=== PATIENT | male | born 1935 | race Caucasian/White ===

== ENCOUNTER 2020-03-03 11:17 | Emergency (ER) | payer MEDICARE ==
[~2020-03-03] VITALS: Ht 175.3 cm; Wt 61.1 kg
--- NOTE | 2020-03-03 11:49 | PHYS DOC ---
Past History Past Medical History: Dementia, Hypertension, Hypothyroid Past Medical History Parkinson's Past Surgical History: No Surgical History Smoking: Non-smoker Alcohol Use: None Drug Use: None General Adult EDM: Chief Complaint: MECHANICAL FALL HPI: HPI: Patient is an 84 year old male who presents for evaluation of left hip pain after fall. Patient lives at home with his spouse. He is very weak and has tr ouble walking at baseline. He had a mechanical fall out of his bed and injured his left hip. He was unable to stand or walk after the injury. EMS was contacted brought the patient in for evaluation. Patient is normally seen at [facility]. No other obvious injuries reported. Due to his dementia patient is a poor historian. No other visible signs of injury seen Review of Systems: Review of Systems: Constitutional: Denies fever or chills Eyes: Denies change in visual acuity HENT: Denies nasal congestion or sore throat Respiratory: Denies cough or shortness of breath Cardiovascular: Denies chest pain or edema GI: Denies abdominal pain, nausea, vomiting, bloody stools or diarrhea : Denies dysuria Musculoskeletal: Denies back pain has left hip joint pain Integument: Denies rash Neurologic: Denies headache, focal weakness or sensory changes Endocrine: Denies polyuria or polydipsia Lymphatic: Denies swollen glands Psychiatric: has depression no anxiety Allergies: Allergies: Allergies Uncoded Allergies Type Severity Reaction Last Updated Verified PENICILLIN Allergy Unknown 03/03/20 Physical Exam: PE: Constitutional: Well developed, well nourished, mild to moderate acute distress, non-toxic appearance. [] HENT: Normocephalic, atraumatic, bilateral external ears normal, oropharynx moist, no oral exudates, nose normal. [] Eyes: PERRL, EOMI, conjunctiva normal, no discharge. [] Neck: Normal range of motion, no tenderness, supple. [] Cardiovascular:Heart rate regular rhythm, murmur [] Lungs & Thorax: Bilateral breath sounds clear to auscultation [] Abdomen: Bowel sounds normal, soft, no tenderness, no masses, no pulsatile masses. [] Skin: Warm, dry, no erythema, no rash. [] Back: No tenderness. [] Extremities: No tenderness, no cyanosis, ROM intact, no edema. Tender left hip area to palpation, tender with movement [] Neurologic: Alert and oriented, normal motor function, normal sensory function, no focal deficits noted. [] Psychologic: Affect abnormal (flat), judgement abnormal, mood abnormal. [] Current Patient Data: Labs: Laboratory Tests Test 03/03/20 11:54 White Blood Count 8.2 x10^3/uL Red Blood Count 2.76 x10^6/uL Hemoglobin 9.2 g/dL Hematocrit 27.8 % Mean Corpuscular Volume 101 fL Mean Corpuscular Hemoglobin 33 pg Mean Corpuscular Hemoglobin Concent 33 g/dL Red Cell Distribution Width 13.6 % Platelet Count 215 x10^3/uL Neutrophils (%) (Auto) 66 % Lymphocytes (%) (Auto) 18 % Monocytes (%) (Auto) 9 % Eosinophils (%) (Auto) 7 % Basophils (%) (Auto) 1 % Neutrophils # (Auto) 5.5 x10^3uL Lymphocytes # (Auto) 1.4 x10^3/uL Monocytes # (Auto) 0.7 x10^3/uL Eosinophils # (Auto) 0.6 x10^3/uL Basophils # (Auto) 0.1 x10^3/uL Sodium Level 137 mmol/L Potassium Level 4.2 mmol/L Chloride Level 102 mmol/L Carbon Dioxide Level 30 mmol/L Anion Gap 5 Blood Urea Nitrogen 33 mg/dL Creatinine 1.3 mg/dL Estimated GFR (Cockcroft-Gault) 52.3 BUN/Creatinine Ratio 25 Glucose Level 107 mg/dL Calcium Level 9.0 mg/dL Total Bilirubin 0.3 mg/dL Aspartate Amino Transf (AST/SGOT) 15 U/L Alanine Aminotransferase (ALT/SGPT) 13 U/L Alkaline Phosphatase 80 U/L Troponin I Quantitative < 0.017 ng/mL Total Protein 6.0 g/dL Albumin 3.4 g/dL Albumin/Globulin Ratio 1.3 EKG: EKG: EKG showed normal sinus rhythm, rate 57, essentially normal EKG otherwise, not STEMI [] Radiology/Procedures: Radiology/Procedures: [address] [address] IMAGING REPORT Signed PATIENT: RICKY CRUZ EACCOUNT: [id number] : 1935 LOCATION: ER AGE: 84 SEX: M EXAM STATUS: REG ER ORD. PHYSICIAN: ARABELLA HARPER DO REASON: pain, fall, injury PROCEDURE: HIP LEFT 2V WITH PELVIS HIP LEFT 2V WITH PELVIS History: Pain, fall, injury Comparison: None. Findings: AP view the pelvis and 3 additional views of the left hip are submitted. There is mostly nondisplaced left femoral neck fracture although mild displacement of a fragment of the lesser trochanter. Left femoral head articulates normally with the acetabulum. There is vascular calcification. Impression: 1. There is left femoral neck fracture, mild displacement of fragment of the lesser trochanter. Electronically signed by: Ruth Nieves MD (03/03/2020 11:53 AM) [facility] DICTATED AND SIGNED BY: RUTH NIEVES MD DATE: 03/03/20 1153 CC: ARABELLA HARPER DO; ADRIAN NOVOA ~ [] Impressions: [place] [address] IMAGING REPORT Signed PATIENT: RICKY CRUZ EACCOUNT: [id number] : 1935 LOCATION: ER AGE: 84 SEX: M EXAM STATUS: REG ER ORD. PHYSICIAN: ARABELLA HARPER DO REASON: pain, fall, injury PROCEDURE: CHEST AP ONLY CHEST AP ONLY History: Pain, fall, injury Comparison: None. Findings: Single view of the chest is submitted. There is suspected emphysema. No convincing pneumothorax is identified. There is no dependent pleural fluid or lobar infiltrate. There is mild right apical opacity. Heart size is considered within normal limits. There is atherosclerotic calcification near the aortic arch. Impression: 1. No convincing acute radiographic abnormality is identified. 2. Right apical opacity is most likely due to fibrotic change although 6 month follow-up could be beneficial to assess stability. Electronically signed by: Ruth Nieves MD (03/03/2020 11:50 AM) [facility] DICTATED AND SIGNED BY: RUTH NIEVES MD DATE: 03/03/20 1150 CC: ARABELLA HARPER DO; ADRIAN NOVOA ~ Heart Score: Risk Factors: Risk Factors: DM, Current or recent (<one month) smoker, HTN, HLP, family history of CAD, obesity. Risk Scores: Score 0 - 3: 2.5% MACE over next 6 weeks - Discharge Home Score 4 - 6: 20.3% MACE over next 6 weeks - Admit for Clinical Observation Score 7 - 10: 72.7% MACE over next 6 weeks - Early Invasive Strategies Course & Med Decision Making: Course & Med Decision Making Pertinent Labs and Imaging studies reviewed. (See chart for details) [] Romulo Disclaimer: Romulo Disclaimer: This electronic medical record was generated, in whole or in part, using a voice recognition dictation system. 1300 stable, case discussed at length with patient and his spouse. Patient used to be established at [facility]. Patient will need to be admitted for his hip fracture. As requested will contact the [facility] transfer line to see about admission to [facility] [address] [facility] transfer line called to discuss case. They will page the orthopedic surgeon hotel or motel receptionist to see about accepting patient to [facility]. 1330 Dr. Amado Burgess called back to discuss case. They are looking for a bed now at [facility]. They will accept pt for admission. Departure Departure: Impression: Primary Impression: Closed left hip fracture Qualified Codes: S72.002A - Fracture of unspecified part of neck of left femur, initial encounter for closed fracture Additional Impression: Anemia Qualified Codes: D64.9 - Anemia, unspecified Disposition: 02 DC/TRF OTHER SHORT TERM HOS (Dr. Amado Nunez is accepting) Condition: STABLE Referrals: ADRIAN NOVOA (PCP) ARABELLA HARPER DO Mar 03, 2020 11:49
--- NOTE | 2020-03-03 11:53 | RAD ---
CHEST AP ONLY History: Pain, fall, injury Comparison: None. Findings: Single view of the chest is submitted. There is suspected emphysema. No convincing pneumothorax is identified. There is no dependent pleural fluid or lobar infiltrate. There is mild right apical opacity. Heart size is considered within normal limits. There is atherosclerotic calcification near the aortic arch. Impression: 1. No convincing acute radiographic abnormality is identified. 2. Right apical opacity is most likely due to fibrotic change although 6 month follow-up could be beneficial to assess stability. Electronically signed by: Dominic Rocha MD (03/03/2020 11:50 AM) [facility]
--- NOTE | 2020-03-03 11:54 | EKG ---
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
--- NOTE | 2020-03-03 11:56 | RAD ---
HIP LEFT 2V WITH PELVIS History: Pain, fall, injury Comparison: None. Findings: AP view the pelvis and 3 additional views of the left hip are submitted. There is mostly nondisplaced left femoral neck fracture although mild displacement of a fragment of the lesser trochanter. Left femoral head articulates normally with the acetabulum. There is vascular calcification. Impression: 1. There is left femoral neck fracture, mild displacement of fragment of the lesser trochanter. Electronically signed by: Dominic Rocha MD (03/03/2020 11:53 AM) [facility]
[2020-03-03 12:11] LABS: BASO # 0.1 x10^3/uL (0.0-0.2); BASO % 1 % (0-3); EOS # 0.6 x10^3/uL (0.0-0.7); EOS % 7 % (0-3); HEMATOCRIT 27.8 % (39.0-53.0); HEMOGLOBIN 9.2 g/dL (13.0-17.5); LYMPH # 1.4 x10^3/uL (1.0-4.8); LYMPH % 18 % (24-48); MEAN CORPUSCULAR HEMOGLOBIN 33 pg (25-35); MEAN CORPUSCULAR HGB CONC 33 g/dL (31-37); MEAN CORPUSCULAR VOLUME 101 fL (79-100); MONO # 0.7 x10^3/uL (0.0-1.1); MONO % 9 % (0-9); NEUT # 5.5 x10^3uL (1.8-7.7); NEUT % 66 % (31-73); PLATELET COUNT 215 x10^3/uL (140-400); RED BLOOD COUNT 2.76 x10^6/uL (4.30-5.70); RED CELL DISTRIBUTION WIDTH 13.6 % (11.5-14.5); WHITE BLOOD COUNT 8.2 x10^3/uL (4.0-11.0)
[2020-03-03 12:27] LABS: ALBUMIN 3.4 g/dL (3.4-5.0); ALBUMIN/GLOBULIN RATIO 1.3 (1.0-1.7); CREATININE 1.3 mg/dL (0.7-1.3); GFR 52.3; POTASSIUM 4.2 mmol/L (3.5-5.1); TOTAL BILIRUBIN 0.3 mg/dL (0.2-1.0)
[2020-03-03 18:14] VITALS: BP 135/75
== END 2020-03-03 18:30 | disposition short-term general hospital (02) ==
LOC: ER 11:17
DX: S72.002A Fracture of unspecified part of neck of left femur, initial encounter for closed fracture (principal); D64.9 Anemia, unspecified; I10 Essential (primary) hypertension; E03.9 Hypothyroidism, unspecified; F03.90 Unspecified dementia, unspecified severity, without behavioral disturbance, psychotic disturbance, mood disturbance, and anxiety; Z88.0 Allergy status to penicillin; W18.39XA Other fall on same level, initial encounter; Y93.89 Activity, other specified; Y92.89 Other specified places as the place of occurrence of the external cause; Y99.8 Other external cause status
CPT/HCPCS: 36415; 71045; 73502; 80053; 84484; 85025; 93005; 96374; 96376; 99285; J3010

== ENCOUNTER 2020-03-19 13:42 | Inpatient (IN) | payer MEDICARE ==
[~2020-03-19] VITALS: Ht 175.3 cm; Wt 56.0 kg
--- NOTE | 2020-03-19 14:28 | PHYS DOC ---
Past History Past Medical History: Dementia, Hypertension, Hypothyroid Additional Past Medical Histor: Parkinson's (FIDENCIO ECHEVERRIA APRN) Past Surgical History: No Surgical History (FIDENCIO ECHEVERRIA APRN) Smoking: Non-smoker Alcohol Use: None Drug Use: None (FIDENCIO ECHEVERRIA APRN) Adult General Chief Complaint Chief Complaint: ABNORMAL LABS HPI HPI Patient is a [84-year-old male patient presents with low hemoglobin. [facility], had lab draw earlier and was found to have hemoglobin of 6. Was sent to hospital EMS for evaluation. Patient has no complaints at this time, patient with history of Alzheimer's, patient reporting he believes he had been in [place] this afternoon and came back to his home afterwards. (FIDENCIO ECHEVERRIA APRN) Review of Systems Review of Systems Constitutional: Denies fever or chills [] HENT: Denies nasal congestion or sore throat [] Respiratory: Denies cough [] Cardiovascular: No additional information not addressed in HPI [] GI: Denies abdominal pain, nausea, vomiting, bloody stools or diarrhea [] : Denies dysuria or hematuria [] Musculoskeletal: Denies back pain or joint pain [] Integument: Denies rash or skin lesions [] Neurologic: Denies headache, focal weakness or sensory changes [] Endocrine: Denies polyuria or polydipsia [] All other systems were reviewed and found to be within normal limits, except as documented in this note. Due to patient's dementia and Alzheimer's, limited history available from patient. (FIDENCIO ECHEVERRIA APRN) Allergies Allergies Allergies Coded Allergies Type Severity Reaction Last Updated Verified Penicillins Allergy Unknown 03/19/20 Yes Uncoded Allergies Type Severity Reaction Last Updated Verified PENICILLIN Allergy Unknown 03/03/20 (FIDENCIO ECHEVERRIA APRN) Physical Exam Physical Exam Constitutional: Chronically frail, no acute distress, nontoxic appearance, pale HENT: Normocephalic, atraumatic, oropharynx moist, no oral exudates, nose normal. [] Eyes: PERRLA, EOMI, conjunctiva normal, no discharge. [] Neck: Normal range of motion, no tenderness, supple, no stridor. [] Cardiovascular:Heart rate regular rhythm, no murmur [] Lungs & Thorax: Bilateral breath sounds clear to auscultation [] Abdomen: Bowel sounds normal, soft, no tenderness, no masses, no pulsatile masses. [] Skin: Warm, dry, no erythema, no rash. Pallor [] Back: No tenderness, no CVA tenderness. [] Extremities: No tenderness, no cyanosis, no clubbing, ROM intact, no edema. [] Neurologic: Alert and oriented to self only, normal motor function, normal sensory function, no focal deficits noted. [] Psychologic: Affect normal, confused [] (FIDENCIO ECHEVERRIA APRN) Current Patient Data Vital Signs Vital Signs Date Time Temp Pulse Resp B/P (MAP) Pulse Ox O2 Delivery O2 Flow Rate FiO2 03/19/20 13:42 98.2 92 16 117/66 (83) 96 Room Air (FIDENCIO ECHEVERRIA APRN) EKG EKG Widespread T-wave inversion. no ST elevation. sinus rhythm. Per Dr Plummer[] (FIDENCIO ECHEVERRIA APRN) Radiology/Procedures Radiology/Procedures PROCEDURE: CHEST AP ONLY EXAM: Chest, single view. HISTORY: Malaise COMPARISON: 03/03/2020 FINDINGS: A frontal view of the chest is obtained. There is stable right apical pleural thickening likely due to scarring. There is no acute infiltrate, pleural effusion or pneumothorax. There is a circumscribed nodule overlying the left lower lobe which appears to be separate from the nipple shadow. Stable in appearance. There is a stable cardiac silhouette. IMPRESSION: 1. Stable right apical pleural parenchymal scarring and stable small nodular opacity overlying the left lower lobe. The nodule is not clearly associated with a nipple shadow and is not clearly calcified. Short-term follow-up is recommended. 2. No acute pulmonary finding. Electronically signed by: Uyen Tang MD (03/19/2020 3:01 PM) [id number] [] (FIDENCIO ECHEVERRIA APRN) Heart Score HEART Score for Chest Pain: HEART Score for Chest Pain Response (Comments) Value History Slighlty/Non-Suspicious [address] Depression 2 Age > 65 2 Risk Factors 1 or 2 Risk Factors 1 Troponin >1-<3x Normal Limit 1 Total 6 Risk Factors: Risk Factors: DM, Current or recent (<one month) smoker, HTN, HLP, family history of CAD, obesity. Risk Scores: Risk Factors: DM, Current or recent (<one month) smoker, HTN, HLP, family history of CAD, obesity. (FIDENCIO ECHEVERRIA APRN) Course & Med Decision Making Course & Med Decision Making Pertinent Labs and Imaging studies reviewed. (See chart for details) [] Reviewed prior labs, with patient last visit 03/03/2020 with hemoglobin 9.1 at that time. Patient troponin about him 0.06. Patient creatinine at that time was 1.3. Patient appears to have chronic anemia, with hemoglobin of 8.1 today. Patient creatinine is 1.6, worsened than prior. Patient with elevated troponin at this time 0.143. Recommend trending troponin admission for monitoring as needed. @[address] Newman, Agrees to admission to trend troponin. (FIDENCIO ECHEVERRIA APRN) Dragon Disclaimer Dragon Disclaimer This electronic medical record was generated, in whole or in part, using a voice recognition dictation system. (FIDENCIO ECHEVERRIA APRN) Attending Co-Sign The patient was seen and interviewed as well as examined at the bedside. The chart was reviewed. The case was discussed. Agree with the plan of care. (FIDENCIO PLUMMER DO) Departure Departure: Impression: Primary Impression: Elevated troponin Additional Impression: Anemia Disposition: 09 ADMITTED INPT THIS HOSP Admitting Physician: Jose Newman (FIDENCIO ECHEVERRIA APRN) Condition: STABLE Referrals: DEX MOSCOSO DO (PCP) Problem Qualifiers Additional Impression: Anemia Anemia type: unspecified type Qualified Codes: D64.9 - Anemia, unspecified FIDENCIO ECHEVERRIA APRN Mar 19, 2020 14:28 FIDENCIO PLUMMER DO Mar 20, 2020 06:11
[2020-03-19 14:39] LABS: BASO # 0.1 x10^3/uL (0.0-0.2); BASO % 1 % (0-3); EOS # 0.2 x10^3/uL (0.0-0.7); EOS % 2 % (0-3); HEMATOCRIT 24.6 % (39.0-53.0); HEMOGLOBIN 8.1 g/dL (13.0-17.5); LYMPH # 1.3 x10^3/uL (1.0-4.8); LYMPH % 16 % (24-48); MEAN CORPUSCULAR HEMOGLOBIN 34 pg (25-35); MEAN CORPUSCULAR HGB CONC 33 g/dL (31-37); MEAN CORPUSCULAR VOLUME 103 fL (79-100); MONO # 0.8 x10^3/uL (0.0-1.1); MONO % 10 % (0-9); NEUT # 5.6 x10^3uL (1.8-7.7); NEUT % 71 % (31-73); PLATELET COUNT 516 x10^3/uL (140-400); RED BLOOD COUNT 2.39 x10^6/uL (4.30-5.70); RED CELL DISTRIBUTION WIDTH 14.5 % (11.5-14.5); WHITE BLOOD COUNT 7.9 x10^3/uL (4.0-11.0)
[2020-03-19 14:46] LABS: CALCIUM 8.5 mg/dL (8.5-10.1); CREATININE 1.6 mg/dL (0.7-1.3); GFR 41.2; POTASSIUM 4.7 mmol/L (3.5-5.1)
[2020-03-19 14:52] LABS: ALBUMIN/GLOBULIN RATIO 0.9 (1.0-1.7); TOTAL BILIRUBIN 0.4 mg/dL (0.2-1.0); TOTAL PROTEIN 6.3 g/dL (6.4-8.2)
--- NOTE | 2020-03-19 15:04 | RAD ---
EXAM: Chest, single view. HISTORY: Malaise COMPARISON: 03/03/2020 FINDINGS: A frontal view of the chest is obtained. There is stable right apical pleural thickening likely due to scarring. There is no acute infiltrate, pleural effusion or pneumothorax. There is a circumscribed nodule overlying the left lower lobe which appears to be separate from the nipple shadow. Stable in appearance. There is a stable cardiac silhouette. IMPRESSION: 1. Stable right apical pleural parenchymal scarring and stable small nodular opacity overlying the left lower lobe. The nodule is not clearly associated with a nipple shadow and is not clearly calcified. Short-term follow-up is recommended. 2. No acute pulmonary finding. Electronically signed by: Uyen Tang MD (03/19/2020 3:01 PM) [id number]
--- NOTE | 2020-03-19 16:29 | EKG ---
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
--- NOTE | 2020-03-19 19:30 | NUR ---
The patient, RICKY CRUZ, 84 y/o, M admitted by YAMILE VAUGHN MD, was given written information regarding hospital policies, unit procedures and contact persons. Patient oriented to room, bed, call light and POC Valuables were checked and . Addendum: 03/19/20 at 2201 by LAI PINTO RN previous note entered.
--- NOTE | 2020-03-19 19:30 | NUR ---
The patient, RICKY CRUZ, 84 y/o, M admitted by YAMILE VAUGHN MD, was given written information regarding hospital policies, unit procedures and contact persons. Patient oriented to room, bed, call light and POC. See admission assessment/documentation. Telemetry applied to Patient. Call light in reach. Patient instructed to call for assistance. Bed alarm set for safety. Valuables were checked and .
[2020-03-19 19:44] VITALS: BP 114/64
[2020-03-19] MEDS ORDERED: ASPI325T8 PO (20:05)
[2020-03-19] MEDS ORDERED: CYAN500T17 PO (20:05)
[2020-03-19] MEDS ORDERED: MAGN400O7 PO (20:05)
[2020-03-19] MEDS ORDERED: CARB1TAB22 PO (20:05)
[2020-03-19] MEDS ORDERED: ACET325T21 PO (20:05)
[2020-03-19] MEDS ORDERED: DONE10TA7 PO (20:05)
[2020-03-19] MEDS ORDERED: METF-658 PO (20:05)
[2020-03-19] MEDS ORDERED: FERR325T14 PO (20:05)
[2020-03-19] MEDS ORDERED: LISI-374 PO (20:05)
[2020-03-19] MEDS ORDERED: ASCO500C PO (20:05)
[2020-03-19] MEDS ORDERED: QUET25TA5 PO (20:05)
[2020-03-19] MEDS ORDERED: DOCU100C28 PO (20:05)
--- NOTE | 2020-03-19 21:50 | NUR ---
Call to Dr. Newman regarding home medications. Order received to renew all home medication.
[2020-03-19] MEDS ORDERED: MAGNESIUM HYDROXIDE 2,400 MG/30 ML ORAL.SUSP. PO PRN (22:00)
[2020-03-19] MEDS: DONEPEZIL HCL 10 MG TABLET PO SCH (23:01)
[2020-03-19] MEDS: ASPIRIN 325 MG TABLET PO SCH (23:01)
[2020-03-19] MEDS: CARBIDOPA/LEVODOPA 25/100MG TABLET PO SCH (23:01)
[2020-03-19] MEDS: FERROUS SULFATE 325 MG TABLET. PO SCH (23:01)
[2020-03-19] MEDS: DOCUSATE SODIUM 100 MG CAPSULE PO SCH (23:01)
[2020-03-19 23:09] VITALS: BP 127/72
[2020-03-20 06:29] VITALS: BP 118/64
[2020-03-20] MEDS ORDERED: metFORMIN XR 500 MG TAB.ER.24H PO SCH (08:00)
[2020-03-20 08:35] LABS: BASO # 0.1 x10^3/uL (0.0-0.2); BASO % 1 % (0-3); EOS # 0.1 x10^3/uL (0.0-0.7); EOS % 2 % (0-3); HEMOGLOBIN 7.7 g/dL (13.0-17.5); LYMPH # 1.3 x10^3/uL (1.0-4.8); LYMPH % 22 % (24-48); MEAN CORPUSCULAR HEMOGLOBIN 34 pg (25-35); MEAN CORPUSCULAR HGB CONC 33 g/dL (31-37); MEAN CORPUSCULAR VOLUME 102 fL (79-100); MONO # 0.5 x10^3/uL (0.0-1.1); MONO % 9 % (0-9); NEUT # 3.9 x10^3uL (1.8-7.7); NEUT % 66 % (31-73); PLATELET COUNT 480 x10^3/uL (140-400); RED BLOOD COUNT 2.26 x10^6/uL (4.30-5.70); RED CELL DISTRIBUTION WIDTH 14.3 % (11.5-14.5)
[2020-03-20 08:48] LABS: CALCIUM 8.4 mg/dL (8.5-10.1); CREATININE 1.4 mg/dL (0.7-1.3); GFR 48.1; POTASSIUM 4.6 mmol/L (3.5-5.1)
[2020-03-20] MEDS: FERROUS SULFATE 325 MG TABLET. PO SCH ×2 (08:59→21:01)
[2020-03-20] MEDS: LISINOPRIL 20 MG TABLET PO SCH (08:59)
[2020-03-20] MEDS: CYANOCOBALAMIN (VITAMIN B-12) 1,000 MCG TABLET. PO SCH (08:59)
[2020-03-20] MEDS: hydroCHLOROthiazide 12.5 MG CAPSULE PO SCH (08:59)
[2020-03-20] MEDS: ASCORBIC ACID 500 MG TABLET PO SCH (08:59)
[2020-03-20] MEDS: CARBIDOPA/LEVODOPA 25/100MG TABLET PO SCH ×3 (08:59→21:00)
[2020-03-20] MEDS: ASPIRIN 325 MG TABLET PO SCH ×2 (08:59→21:00)
[2020-03-20 11:20] VITALS: BP 110/57
--- NOTE | 2020-03-20 13:51 | HP ---
ADMIT DATE: 03/20/2020 HISTORY OF PRESENT ILLNESS: The patient is an 84-year-old male patient, a resident at [facility], who apparently was sent to the Emergency Room, as [facility] drawn [facility] at the [facility] showed that his hemoglobin was only 6. He was sent to the hospital for evaluation. The patient himself is extremely demented and did not offer any complaint. He is extremely disoriented in time, place and person. He was evaluated in the Emergency Room, and initial evaluation showed he was hemodynamically stable and repeat H and H showed that his hemoglobin was 8.1, hematocrit 24 with normal white cell count and platelets, and therefore, the patient was admitted for further evaluation. PAST MEDICAL HISTORY: Significant for type 2 diabetes mellitus, chronic anemia, mixed hyperlipidemia, Parkinson disease, essential hypertension, abnormal weight loss. He also had a fracture of neck of left femur requiring open reduction and internal fixation. He also is known to have severe protein-calorie malnutrition. ALLERGIES: HE IS ALLERGIC TO PENICILLIN. MEDICATIONS: He is currently on following medications: He is on Aricept 10 mg at bedtime, ferrous sulfate 325 mg twice a day, lisinopril/hydrochlorothiazide 20/12.5 mg once a day, aspirin 325 mg twice a day, acetaminophen 650 mg every 6 hours, quetiapine fumarate 25 mg at bedtime, carbidopa/levodopa 25/100 one tablet 3 times a day, Colace 200 mg at bedtime, milk of magnesia 30 mL p.o. daily p.r.n. for constipation, metformin 500 mg daily with breakfast, cyanocobalamin 500 mcg once a day, and ascorbic acid 500 mg once a day. FAMILY HISTORY: Noncontributory. SOCIAL HISTORY: He apparently is a resident at [facility]. No further information was unobtainable, as the patient is extremely demented. PHYSICAL EXAMINATION: GENERAL: On arrival to the Emergency Room, the patient looked pale, but no jaundice, cyanosis or thyromegaly. No jugular venous distention or limb edema. VITAL SIGNS: His heart rate was 92, blood pressure was 117/66, temperature 98.2, respiratory rate was 16, and oxygen saturation was 96% on room air. HEAD, EYES, EARS, NOSE AND THROAT: Showed normocephalic, atraumatic. NECK: Supple. HEART: Showed normal first and second heart sounds. No gallop, rub, or murmur. CHEST: Clear to auscultation. No crepitation or rhonchi. ABDOMEN: Scaphoid, soft, nontender. NEUROLOGIC: He is awake, alert, very confused and disoriented; however, all his cranial nerves are intact. EXTREMITIES: He moves extremities without difficulty. Examination of the extremities showed no clubbing, cyanosis or edema; however, he has severely deformed toenails particularly of his right big and left big toe. Has surgical wounds on the left side. The outer upper hip area covered with dressing. The wound has healed nicely with kianna still in place. Apparently, the patient fell sustaining left femoral neck fracture with mild displacement for which he was sent to [facility] where he underwent open reduction and internal fixation. This was done on 03/03/2020 about more than 2 weeks ago. He is actually on aspirin 325 mg twice a day for DVT prophylaxis. LABORATORY DATA: On arrival to the Emergency Room, his lab work showed a white cell count of 8200. Actually, his hemoglobin was 9.2 and hematocrit 27.8 on 03/03/2020. As of yesterday 03/19/2020, his hemoglobin was 8.1, hematocrit 24.6 with normal white cell count and platelets. His chemistry showed a serum sodium 133, potassium 4.7, chloride 98, bicarbonate 29, anion gap of 6, BUN 37, creatinine 1.6. Estimated GFR was 41 mL per minute. His glucose 123, calcium was 8.5. Total bilirubin, AST, ALT were normal. Alkaline phosphatase was elevated. His total protein was 6.3, albumin 3. PLAN: The patient was admitted and was continued on all his medications and we will obviously monitor his lab work closely, particularly his H and H. His troponin was elevated at 0.431, however, it is trending down. I would consult the cardiology team, and his serum iron, TIBC, and iron saturation are all consistent with replete iron stores. YAMILE VAUGHN MD DR: ALEX/benitez JOB#: [id number] / [id number]
[2020-03-20 15:58] VITALS: BP 105/64
[2020-03-20 18:55] VITALS: BP 125/73
[2020-03-20] MEDS: ACETAMINOPHEN 325 MG TABLET PO PRN (21:00)
[2020-03-20] MEDS: DONEPEZIL HCL 10 MG TABLET PO SCH (21:00)
[2020-03-20] MEDS: DOCUSATE SODIUM 100 MG CAPSULE PO SCH (21:00)
[2020-03-20 22:47] VITALS: BP 110/62
--- NOTE | 2020-03-20 23:39 | PN ---
DATE: 03/20/2020 SUBJECTIVE: The patient is resting slightly propped up in bed, eating his lunch comfortably, in no apparent distress. On questioning him, he denied any complaint, in particular denied any nausea or vomiting, abdominal pain. Nursing staff did not voice any concern. Did not report any hematemesis, melena or hematochezia. PHYSICAL EXAMINATION: GENERAL: When I examined him, he looked pale, not jaundice, cyanosis, thyromegaly, jugular venous distention or limb edema. VITAL SIGNS: His heart rate was 72, blood pressure was 118/64, temperature was 98.1, respiratory rate was 18 and oxygen saturation was 97%. HEAD, EYES, EARS, NOSE AND THROAT: Normocephalic, atraumatic. NECK: Supple. HEART: Normal first and second heart sounds. No gallop, rub or murmur. CHEST: Clear to auscultation. No crepitation or rhonchi. ABDOMEN: Scaphoid, soft, nontender. NEUROLOGIC: He was demented, but without any obvious lateralizing sign. His intake over the last 24 hours was incompletely recorded. LABORATORY DATA: Showed a white cell count of 6000, hemoglobin 7.7, hematocrit 23, MCV 102 and platelet count of 480,000. Serum sodium was 134, potassium 4.6, chloride 99, bicarbonate 28, anion gap of 7, BUN 33, creatinine 1.4, estimated GFR was 48 mL per minute. His glucose was 91, calcium was 8.4. ASSESSMENT: Anemia. The patient's H and H is drifting down slowly. There is no obvious blood loss. However, the patient is on aspirin 325 mg twice a day for DVT prophylaxis for the left femoral neck fracture. However, the patient has continued to be hemodynamically stable. He has multiple other medical problems including: A. Hypertension. B. Type 2 diabetes mellitus. PLAN: My plan is to basically continue to observe his H and H. He has also Parkinson's disease and chronic constipation. We will consult Physical and Occupational Therapy. Repeat his H and H tomorrow and if it dropped to 7 or below 7, we will transfuse him. Might have to contact the orthopedic surgeon regarding discontinuation of his aspirin for DVT prophylaxis. YAMILE VAUGHN MD DR: ALEX/benitez JOB#: [id number] / [id number]
[2020-03-21 06:03] VITALS: BP 122/67
--- NOTE | 2020-03-21 07:12 | NUR ---
Pt slept off and on through the night. Periodically he awoke needing his brief changed, wanting to call his and wanting to get up out of bed. Pt oriented to self only. Dialogue is garbled at times and his thoughts trailing. Pt can be redirected to answer questions at times. Will continue to monitor.
[2020-03-21 07:44] LABS: HEMATOCRIT 23.8 % (39.0-53.0); HEMOGLOBIN 7.8 g/dL (13.0-17.5)
[2020-03-21 07:48] LABS: CALCIUM 8.2 mg/dL (8.5-10.1); CREATININE 1.3 mg/dL (0.7-1.3); GFR 52.3; POTASSIUM 4.1 mmol/L (3.5-5.1)
[2020-03-21] MEDS: hydroCHLOROthiazide 12.5 MG CAPSULE PO SCH (08:00)
[2020-03-21] MEDS: CYANOCOBALAMIN (VITAMIN B-12) 1,000 MCG TABLET. PO SCH (08:00)
[2020-03-21] MEDS: ASCORBIC ACID 500 MG TABLET PO SCH (08:01)
[2020-03-21] MEDS: CARBIDOPA/LEVODOPA 25/100MG TABLET PO SCH ×3 (08:01→20:23)
[2020-03-21] MEDS: ASPIRIN 325 MG TABLET PO SCH ×2 (08:01→20:23)
[2020-03-21] MEDS: LISINOPRIL 20 MG TABLET PO SCH (08:01)
[2020-03-21] MEDS: FERROUS SULFATE 325 MG TABLET. PO SCH ×2 (08:01→20:22)
--- NOTE | 2020-03-21 09:44 | NUR ---
NURSING NOTE LEFT HIP BIBI WHEN EVALUATING PT LEFT HIP, INCISION LOOKS CLOSED AND HEALING WELL, SOME BIBI LOOK IF THEY HAVE FALLEN OUT, AND OTHERS LOOK LIKE THEY ARE FALLING OUT. SPOKE WITH FACILITY, PT HAD PROCEDURE ON 03/04. BIBI HAVE BEEN IN 17 DAYS NOW. PER FACILITY, NO FOLLOW UP WAS SCHEDULED FOR THE PT WITH THE ORTHO, DR SOLORZANO. WILL SPEAK WITH DR VAUGHN TODAY UPON ROUNDS TO FIND OUT IF PT BIBI NEED TO BE REMOVED. ADIS CAMPOS.
--- NOTE | 2020-03-21 09:46 | NUR ---
NURSING NOTE FLU VACCINE PER FACILITY, PT REFUSES THE FLU VACCINE. ADIS CAMPOS.
[2020-03-21 10:40] VITALS: BP 90/66
--- NOTE | 2020-03-21 10:42 | NUR ---
NURSING NOTE CONSULT PER DR VAUGHN NOTE, CONSULT CARDIOLOGY, CONSULT CALLED FOR ELEVATED TROPONIN. ADIS CAMPOS.
--- NOTE | 2020-03-21 12:44 | PN ---
DATE: 03/21/2020 SUBJECTIVE: The patient is resting, slightly propped up in bed, in no apparent distress. He is confused, demented; however, he clearly does not seem to be in any respiratory distress. Nursing staff did not voice any concern. PHYSICAL EXAMINATION: GENERAL: When I examined him, he looked pale, somewhat cachectic, but no jaundice, cyanosis or thyromegaly. No jugular venous distention or limb edema. VITAL SIGNS: His heart rate was 77, blood pressure was 90/66, temperature was 97.9, respiratory rate was 18 and oxygen saturation was 94%. HEAD, EYES, EAR, NOSE, AND THROAT: Showed normocephalic and atraumatic. NECK: Supple. HEART: Normal first and second heart sounds. No gallop or murmur. CHEST: Clear to auscultation. No crepitation or rhonchi. ABDOMEN: Scaphoid, soft, nontender. NEUROLOGIC: He is demented; however, is grossly intact. He is mostly bedbound. His intake over the last 24 hours and output incompletely recorded. LABORATORY DATA: His lab work this morning showed hemoglobin 7.8, and hematocrit 23.8. His chemistry showed that his serum sodium 134, potassium 4.1, chloride 99, bicarbonate 27, anion gap of 8, BUN 28, creatinine 1.3, estimated GFR was 92 mL per minute. His glucose 92, calcium was 8.2. His serum iron is 43, TIBC was 206 and iron saturation was 21. He has 3 sets of cardiac enzymes, showed troponin to be 0.143, 0.128 and 0.126. ASSESSMENT: 1. Anemia. The patient's H and H at [facility] was 6; however, it was on repetition here it was 8, it is drifting down slowly. He was on aspirin 325 mg twice a day for DVT prophylaxis after his left femoral neck fracture; however, the patient continued to be hemodynamically stable. 2. The patient has multiple other medical problems including: A. Hypertension. B. Type 2 diabetes mellitus. C. Has elevated troponin, for which we have consulted the linoleum layer apprentice to evaluate and assist with the management. YAMILE VAUGHN MD DR: ALEX/benitez JOB#: [id number] / [id number]
--- NOTE | 2020-03-21 13:14 | PDOC ---
PROVIDER NOTE PROVIDER NOTE PROVIDER NOTE Cardiology consult note: Reason for consultation: Elevated troponin. HPI: 84 y.o male admitted for possible anemia. For unclear reasons troponin was checked. He currently denies any chest pain or dyspnea. No prior CV issues. PAST MEDICAL HISTORY: 1. DM2 2. PD 3. HTN 4. Failure to thrive. Sochx: jail resident. ALL: Pcn: Meds reviewed. ROS: Negative. Exam: Thin emaciated man in no acute distress. Normal heart tones. No edema. Labs reviewed. Imaging reviewed. Impression: 1. Elevated troponin - etiology unclear. Patient has no arrhythmias, no significant EKG changes and most importantly no symptoms to suggest cardiac pathology. No further CV testing needed at this time. Thanks for consultation. Justification of Admission: Justification of Admission: Justification of Admission Dx: N/A JENNIFER ABRAHAM MD Mar 21, 2020 13:14
[2020-03-21 15:28] VITALS: BP 98/64
--- NOTE | 2020-03-21 15:45 | NUR ---
NURSING NOTE BIBI LEFT HIP PER DR VAUGHN, REMOVE BIBI ON LEFT HIP. BIBI REMOVED. INCISION HEALED NICELY. SOME SKIN IRRITATION WHERE BIBI WERE. STERI STRIPS APPLIED. OPEN TO AIR. ANDRES ARCEO
[2020-03-21 19:07] VITALS: BP 115/66
[2020-03-21] MEDS: DONEPEZIL HCL 10 MG TABLET PO SCH (20:23)
[2020-03-21] MEDS: DOCUSATE SODIUM 100 MG CAPSULE PO SCH (20:23)
[2020-03-22 06:09] VITALS: BP 113/60
[2020-03-22 06:46] LABS: CALCIUM 8.7 mg/dL (8.5-10.1); CREATININE 1.3 mg/dL (0.7-1.3); GFR 52.3; POTASSIUM 3.9 mmol/L (3.5-5.1)
[2020-03-22 07:37] LABS: HEMATOCRIT 24.7 % (39.0-53.0); RED BLOOD COUNT 2.46 x10^6/uL (4.30-5.70); RED CELL DISTRIBUTION WIDTH 15.5 % (11.5-14.5); WHITE BLOOD COUNT 5.5 x10^3/uL (4.0-11.0)
[2020-03-22] MEDS: LISINOPRIL 20 MG TABLET PO SCH (07:49)
[2020-03-22] MEDS: ASPIRIN 325 MG TABLET PO SCH (07:49)
[2020-03-22] MEDS: hydroCHLOROthiazide 12.5 MG CAPSULE PO SCH (07:49)
[2020-03-22] MEDS: CARBIDOPA/LEVODOPA 25/100MG TABLET PO SCH ×2 (07:50→13:16)
[2020-03-22] MEDS: ACETAMINOPHEN 325 MG TABLET PO PRN (07:50)
[2020-03-22] MEDS: ASCORBIC ACID 500 MG TABLET PO SCH (07:50)
[2020-03-22] MEDS: CYANOCOBALAMIN (VITAMIN B-12) 1,000 MCG TABLET. PO SCH (07:50)
[2020-03-22] MEDS: FERROUS SULFATE 325 MG TABLET. PO SCH (07:50)
--- NOTE | 2020-03-22 10:16 | DISCH ---
DISCHARGE ORDERS DISCHARGE DATE: Mar 22, 2020 FINAL DIAGNOSIS chronic anemia hypertensiomn diabetes mellitus CONDITION AT DISCHARGE: Stable Code Status: Full SNF STAY <30 DAYS: Yes POST DISCHARGE ORDERS: ACTIVITY ORDERS: Resume previous activity DIET AFTER DISCHARGE: ADA DISCHARGE MEDICATIONS: Home Meds Reported Medications Lisinopril/Hydrochlorothiazide (ZESTORETIC 20-12.5 MG TABLET) 1 Each Tablet, 1 TAB PO DAILY for FOR HYPERTENSION, #30 TAB 0 Refills 03/19/20 Quetiapine Fumarate (SEROQUEL) 25 Mg Tablet, 25 MG PO QHS for hallucinations, TAB 03/19/20 Magnesium Hydroxide (MILK OF MAGNESIA) 400 Mg/5 Ml Oral.susp, 30 ML PO PRN Q24HRS PRN for CONSTIPATION, LIQUID 03/19/20 Metformin Hcl (METFORMIN HCL ER) 500 Mg Tab.er.24h, 500 MG PO DAILYWBKFT for ANTI-DIABETIC, TAB 0 Refills 03/19/20 Ferrous Sulfate (FERROUS SULFATE) 325 Mg Tablet, 325 MG PO BID for supplement, TAB 03/19/20 Donepezil Hcl (DONEPEZIL HCL) 10 Mg Tablet, 10 MG PO QHS for ., TAB 03/19/20 Docusate Sodium (DOCUSATE SODIUM) 100 Mg Capsule, 200 MG PO QHS for constipation, CAP 03/19/20 Cyanocobalamin (Vitamin B-12) (B-12) 500 Mcg Tablet, 500 MCG PO DAILY for supplement, TAB 03/19/20 Carbidopa/Levodopa (CARBIDOPA-LEVODOPA 25-100 TAB) 1 Each Tablet, 1 TAB PO TID for parkinson's for 30 Days, #90 TAB 0 Refills 03/19/20 Aspirin (ASPIRIN) 325 Mg Tablet, 325 MG PO BID for inflammation, TAB 03/19/20 Ascorbic Acid (VITAMIN C) 500 Mg Capsule.er, 500 MG PO DAILY for supplement, CAP.SR 03/19/20 Acetaminophen (ACETAMINOPHEN) 325 Mg Tablet, 325 MG PO PRN Q6HRS PRN for PAIN, TAB 03/19/20 YAMILE VAUGHN MD Mar 22, 2020 10:16
[2020-03-22 10:35] VITALS: BP 92/57
--- NOTE | 2020-03-22 10:50 | DS ---
DATE OF DISCHARGE: 03/22/2020 HOSPITAL COURSE: The patient is an 84-year-old male patient who was brought to the Emergency Room, his lab work showed that he was anemic with hemoglobin of 6; however, on arrival to the Emergency Room, his hemoglobin was found to be 8.1, hematocrit 24. Therefore, the patient was admitted for further evaluation and treatment. We monitored his H and H and that remained stable with hemoglobin around 8 and hematocrit 24 with normal white cell count and platelets. His creatinine was slightly elevated at 1.6 and his BUN was also elevated 37. His kidney function has steadily improved such as BUN came down to 27 and creatinine came down to 1.3. As the patient remained hemodynamically stable, afebrile, a decision was made to discharge him back [facility] to continue the process of rehabilitation. PHYSICAL EXAMINATION: GENERAL: When I examined him today, he looked pale, but no jaundice, cyanosis or thyromegaly. No jugular venous distention or limb edema. VITAL SIGNS: His heart rate was 64, blood pressure was 113/60, temperature 97.8, respiratory rate was 18 and oxygen saturation was 96%. HEAD, EYES, EARS, NOSE AND THROAT: Showed normocephalic and atraumatic. NECK: Supple. HEART: Showed normal first and second heart sounds with no gallop, rub or murmur. CHEST: Clear to auscultation. No crepitation or rhonchi. ABDOMEN: Distended, soft, nontender. No guarding or rigidity. No organomegaly. All hernial orifice intact. Bowel sounds normal. NEUROLOGIC: He is demented, but without any obvious lateralizing sign. His intake over the last 24-hours was 814, output was recorded. LABORATORY DATA: This morning showed white cell count 5.5, hemoglobin 8, hematocrit 24, MCV 101 and platelet count 553,000. His chemistry showed a serum sodium 134, potassium 3.9, chloride 98, bicarbonate 27, anion gap of 9, BUN 27, creatinine 1.3, estimated GFR was 52 mL per minute. His glucose 101, calcium was 8.7. He has 3 sets of cardiac enzymes slightly elevated. DISCHARGE MEDICATIONS: The patient was discharged back to [facility] to continue on Tylenol 650 mg every 6 hours, ascorbic acid 500 mg once a day, aspirin 325 mg twice a day, carbidopa/levodopa 25/100 one tablet 3 times a day, cyanocobalamin 500 mcg once a day, Colace 200 mg at bedtime, Aricept 10 mg at bedtime, ferrous sulfate 325 mg twice a day, lisinopril/hydrochlorothiazide 20/12.5 one tablet once a day, magnesium oxide (milk of magnesia) 30 mL p.o. daily p.r.n. for constipation, metformin 500 mg daily, and quetiapine fumarate 25 mg at bedtime. FINAL DISCHARGE DIAGNOSES: 1. Anemia, chronic, normochromic normocytic, stable. 2. Hypertension. 3. Type 2 diabetes mellitus. 4. Peripheral vascular disease. 5. Elevated troponin, for which he was seen by the wireline supervisor, not recommend any further intervention given his age, mental status, and comorbidities. YAMILE VAUGHN MD DR: ALEX/benitez JOB#: [id number] / [id number]
[2020-03-22 10:52] VITALS: BP 115/61
--- NOTE | 2020-03-22 14:12 | NUR ---
NURSING NOTE DISCHARGE PT DISCHARGED TO [facility], REPORT CALLED TO VIVIENNE. PT SENT WITH DISCHARGE PACKET ACCOMPANIED BY [facility]. ATTEMPT TO NOTIFY PT BREE OF DISCHARGE, NO ANSWER, LEFT MESSAGE THAT PT WAS DISCHARGING BACK TO FACILITY. ADIS CAMPOS.
== END 2020-03-22 14:15 | DRG 683 ==
LOC: ER 13:42 → 1 SOUTH 16:10 → OBSVTOIN 03-21 01:15
PROVIDERS: ADMIT Internal Medicine; ATTEND Internal Medicine
DX: N17.0 Acute kidney failure with tubular necrosis (principal); E87.1 Hypo-osmolality and hyponatremia; E03.9 Hypothyroidism, unspecified; E11.51 Type 2 diabetes mellitus with diabetic peripheral angiopathy without gangrene; E78.2 Mixed hyperlipidemia; F02.80 Dementia in other diseases classified elsewhere, unspecified severity, without behavioral disturbance, psychotic disturbance, mood disturbance, and anxiety; G20 Parkinson's disease; I10 Essential (primary) hypertension; Z79.82 Long term (current) use of aspirin; Z88.0 Allergy status to penicillin; Z79.899 Other long term (current) drug therapy; D50.0 Iron deficiency anemia secondary to blood loss (chronic)
CPT/HCPCS: 36415; 71045; 80048; 80053; 83540; 83550; 84484; 85014; 85018; 85025; 85027; 86850; 86900; 86901; 93005; G0378; G0379; 99285-25

== ENCOUNTER 2020-04-19 12:08 | Emergency (ER) | payer MEDICARE ==
[~2020-04-19] VITALS: Ht 175.3 cm; Wt 66.3 kg
[~2020-04-19 12:08] MED LIST: ACET325T21 PO; ASCO500C PO; ASPI325T8 PO; CARB1TAB22 PO; CYAN500T17 PO; DOCU100C28 PO; DONE10TA7 PO; FERR325T14 PO; LISI-374 PO; MAGN400O7 PO; METF-658 PO; QUET25TA5 PO
[2020-04-19] MEDS ORDERED: IV NORMAL SALINE 1,000ML 1,000 ML IV ONE ×3 (12:30→14:00)
--- NOTE | 2020-04-19 12:59 | PHYS DOC ---
Past History Past Medical History: Dementia, Hypertension, Hypothyroid Additional Past Medical Histor: Parkinson's (KJ DA SILVA APRN) Past Surgical History: No Surgical History, Other Additional Past Surgical Histo: left hip arthroplasty (KJ DA SILVA APRN) Smoking: Non-smoker Alcohol Use: None Drug Use: None (KJ DA SILVA APRN) Adult General Chief Complaint Chief Complaint: ALTERED MENTAL STATUS HPI HPI Patient is a 84-year-old male patient with history of dementia, hypertension, Parkinson's, baseline confusion, who presents to the ED today from [facility]. Patient was sent to the hospital because he was noted to be more altered than normal. He also had a positive rapid Covid. Patient is a very poor historian especially with his underlying dementia History obtained from the (KJ DA SILVA APRN) Review of Systems Review of Systems Constitutional: Denies fever or chills [] Eyes: Denies change in visual acuity, redness, or eye pain [] HENT: Denies nasal congestion or sore throat [] Respiratory: Reports positive Covid test. Denies cough or shortness of breath [] Cardiovascular: No additional information not addressed in HPI [] GI: Denies abdominal pain, nausea, vomiting, bloody stools or diarrhea [] : Denies dysuria or hematuria [] Musculoskeletal: Denies back pain or joint pain [] Integument: Denies rash or skin lesions [] Neurologic: Reports altered mental status. Denies headache, focal weakness or sensory changes [] Most of the above history was obtained from the All other systems were reviewed and found to be within normal limits, except as documented in this note. (KJ DA SILVA APRN) Current Medications Current Medications Current Medications Medications (Trade) Dose Ordered Sig/Raimundo Start Time Stop Time Status Last Admin Dose Admin Sodium Chloride 1,000 ml @ 1,000 mls/hr 1X ONCE 04/19/20 12:30 04/19/20 13:29 04/19/20 12:36 1,000 MLS/HR Sodium Chloride (Normal Saline Flush) 10 ml QSHIFT PRN 04/19/20 12:30 (KJ DA SILVA BRISEIDA) Allergies Allergies Allergies Coded Allergies Type Severity Reaction Last Updated Verified Penicillins Allergy Unknown 03/19/20 Yes (KJ DA SILVA APRN) Physical Exam Physical Exam Constitutional: Well developed, well nourished, no acute distress, non-toxic appearance. [] HENT: Normocephalic, atraumatic, bilateral external ears normal, oropharynx moist, no oral exudates, nose normal. [] Eyes: PERRLA, EOMI, conjunctiva normal, no discharge. [] Neck: Normal range of motion, no tenderness, supple, no stridor. [] Cardiovascular: Bradycardic Lungs & Thorax: Diminished breath sounds. Abdomen: Bowel sounds normal, soft, no tenderness, no masses, no pulsatile masses. [] Skin: Warm, dry, no erythema, bruising to bilateral upper extremities Back: No tenderness, no CVA tenderness. [] Extremities: No tenderness, no cyanosis, no clubbing, ROM intact, no edema. [] Neurologic: Alert and oriented X 1-2, normal motor function, normal sensory function, no focal deficits noted. [] Psychologic: Affect normal, judgement normal, mood normal. [] (KJ DA SILVA APRN) EKG EKG Interpreted by Dr. Nguyen. Sinus bradycardia heart rate 55-year-old no STEMI (KJ DA SILVA APRN) Radiology/Procedures Radiology/Procedures []PROCEDURE: CT HEAD WO CONTRAST Examination: CT HEAD WO CONTRAST History: Reason: AMs / Spl. Instructions: / History: Comparison/Correlation: None Findings: Axial images of the head were obtained without contrast. Atrophy is present. Chronic ischemic changes of white matter noted. Bilateral basal ligament calcification is evident. Mild ventriculomegaly which presumably relates to volume loss is evident. Significant calcific involvement of the right vertebral artery is present. Bony structures are intact. 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 Small pontine lacunar infarcts which appear to be old are present. No acute bony process. Impression: No intracranial hemorrhage. 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 Electronically signed by: Stefan Baxter MD (04/19/2020 1:25 PM) [id number] DICTATED AND SIGNED BY: STEFAN BAXTER MD DATE: 04/19/20 1325 CC: [facility]; DEX MOSCOSO DO; KJ DA SILVA APRN ~MTH0 0 PROCEDURE: PORTABLE CHEST 1V Examination: PORTABLE CHEST 1V History: AMS Comparison/Correlation: 03/19/2020 AP view of the chest Findings: Portable upright frontal view of the chest was obtained. Heart size and pulmonary vasculature are normal. No infiltrate or effusion. Right apical pleural thickening again seen. No pneumothorax. Impression: No acute process. Electronically signed by: Stefan Baxter MD (04/19/2020 1:27 PM) [id number] DICTATED AND SIGNED BY: STEFAN BAXTER MD DATE: 04/19/20 1328 CC: [facility]; DEX MOSCOSO DO; KJ DA SILVA APRN ~MTH0 0 (KJ DA SILVA APRN) Heart Score Risk Factors: Risk Factors: DM, Current or recent (<one month) smoker, HTN, HLP, family history of CAD, obesity. Risk Scores: Risk Factors: DM, Current or recent (<one month) smoker, HTN, HLP, family history of CAD, obesity. (KJ DAS ILVA APRN) Course & Med Decision Making Course & Med Decision Making Pertinent Labs and Imaging studies reviewed. (See chart for details) This is a 84-year-old male patient presenting to the ED today from [facility] to be evaluated for altered mental status, patient was positive for Covid rapid test done today. Patient arrives in the ED with temperature of 97.5 axillary, heart rate 58, blood pressure 98/50, respiration 18, O2 sats 98% on [address] of the head is negative for any acute findings, chest x-ray interpreted by radiologist as negative CBC with a normal WBC, CMP with a creatinine of 1.7, BUN of 35. BNP 16,310, CK 505, lactic 2.8. Troponin 0.350, EKG is normal, this is than patient's baseline troponin, patient was given an aspirin. Spoke with who will f/u with patient Spoke with Dr. Newman who accepted patient for admission at [facility] (KJ DA SILVA APRN) Course & Med Decision Making The patient was seen and interviewed as well as examined at the bedside. The chart was reviewed. The case was discussed. Agree with the plan of care. 84-year-old male arrives via EMS with respiratory distress and low blood pressure. Patient has recent diagnosis of COVID-19. Patient responded to IV fluids and oxygen. Patient alert but confused with mild increased work of breathing on supplemental oxygen on my assessment. Patient will need to be transferred to [place] for inpatient ICU treatment. (MARY NGUYEN MD) Dragon Disclaimer Dragon Disclaimer This electronic medical record was generated, in whole or in part, using a voice recognition dictation system. (KJ DA SILVA APRN) Departure Departure: Impression: Primary Impression: Altered mental status Additional Impressions: Lab test positive for detection of COVID-19 virus Respiratory failure Disposition: 05 DC/TRF OTHER TYPE INSTITUTI Condition: STABLE Referrals: DEX MOSCOSO DO (PCP) Problem Qualifiers Primary Impression: Altered mental status Altered mental status type: unspecified Qualified Codes: R41.82 - Altered mental status, unspecified Additional Impressions: Respiratory failure Chronicity: acute Respiratory failure complication: unspecified whether with hypoxia or hypercapnia Qualified Codes: J96.00 - Acute respiratory failure, unspecified whether with hypoxia or hypercapnia KJ DA SILVA APRN Apr 19, 2020 12:59 MARY NGUYEN MD Apr 19, 2020 14:20
[2020-04-19 13:01] LABS: CREATININE 1.7 mg/dL (0.7-1.3); GFR 38.4; POTASSIUM 4.8 mmol/L (3.5-5.1)
[2020-04-19 13:03] LABS: BASO % 1 % (0-3); EOS % 0 % (0-3); HEMATOCRIT 27.1 % (39.0-53.0); HEMOGLOBIN 8.9 g/dL (13.0-17.5); LYMPH # 1.3 x10^3/uL (1.0-4.8); LYMPH % 29 % (24-48); MEAN CORPUSCULAR HEMOGLOBIN 33 pg (25-35); MEAN CORPUSCULAR HGB CONC 33 g/dL (31-37); MEAN CORPUSCULAR VOLUME 102 fL (79-100); MONO # 0.8 x10^3/uL (0.0-1.1); MONO % 18 % (0-9); NEUT # 2.3 x10^3uL (1.8-7.7); NEUT % 52 % (31-73); PLATELET COUNT 318 x10^3/uL (140-400); RED BLOOD COUNT 2.66 x10^6/uL (4.30-5.70); RED CELL DISTRIBUTION WIDTH 14.4 % (11.5-14.5); WHITE BLOOD COUNT 4.4 x10^3/uL (4.0-11.0)
--- NOTE | 2020-04-19 13:10 | EKG ---
[address] [address] Test Date: 2020-04-19 Test Time: 12:22:34 Pat Name: RICKY CRUZ Department: Room: Gender: M Waterproofer: : 1935 Requested By: KJ DA SILVA Order Number: [id number] Reading MD: Measurements Intervals [place] Rate: 57 P: UT: QRS: 55 QRSD: 74 T: -71 QT: 438 QTc: 429 Interpretive Statements IRREGULAR RHYTHM, NO P-WAVE FOUND ST & T ABNORMALITY, CONSIDER ANTEROLATERAL ISCHEMIA OR LEFT VENTRICULAR STRAIN T ABNORMALITY IN INFEROLATERAL LEADS ABNORMAL ECG RI6.02 No previous ECG available for comparison
[2020-04-19 13:21] LABS: BACTERIA,URINE MANY /HPF (0-FEW); BILIRUBIN,URINE NEG (NEG); CLARITY,URINE HAZY; COLOR,URINE YELLOW; GLUCOSE,URINE NEG (NEG); HYALINE CASTS, URINE MOD /HPF; NITRITE,URINE NEG (NEG); SQUAMOUS EPITHELIAL CELL,UR OCC /LPF; WBC,URINE >40 /HPF (0-4)
[2020-04-19 13:22] LABS: GRANULAR CASTS,URINE OCC /HPF
--- NOTE | 2020-04-19 13:28 | RAD ---
Examination: CT HEAD WO CONTRAST History: Reason: AMs / Spl. Instructions: / History: Comparison/Correlation: None Findings: Axial images of the head were obtained without contrast. Atrophy is present. Chronic ischemic changes of white matter noted. Bilateral basal ligament calcification is evident. Mild ventriculomegaly which presumably relates to volume loss is evident. Significant calcific involvement of the right vertebral artery is present. Bony structures are intact. 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 Small pontine lacunar infarcts which appear to be old are present. No acute bony process. Impression: No intracranial hemorrhage. 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 Electronically signed by: Stefan Garzon MD (04/19/2020 1:25 PM) [id number]
--- NOTE | 2020-04-19 13:30 | RAD ---
Examination: PORTABLE CHEST 1V History: AMS Comparison/Correlation: 03/19/2020 AP view of the chest Findings: Portable upright frontal view of the chest was obtained. Heart size and pulmonary vasculature are normal. No infiltrate or effusion. Right apical pleural thickening again seen. No pneumothorax. Impression: No acute process. Electronically signed by: Stefan Garzon MD (04/19/2020 1:27 PM) [id number]
[2020-04-19 13:31] LABS: ALBUMIN 3.1 g/dL (3.4-5.0); MAGNESIUM 2.3 mg/dL (1.8-2.4); TOTAL BILIRUBIN 0.2 mg/dL (0.2-1.0); TOTAL PROTEIN 6.1 g/dL (6.4-8.2)
[2020-04-19] MEDS ORDERED: ASPIRIN 325 MG TABLET PO ONE (13:45)
[2020-04-19] MEDS: 0.9 % SODIUM CHLORIDE 10 ML DISP.SYRIN. IV PRN ×2 (14:15→23:00)
[2020-04-19] MEDS ORDERED: VANCOMYCIN PER PHARMACY MC STA (14:22)
[2020-04-19] MEDS ORDERED: DEXAMETHASONE SOD PHOS 10 MG/ML VIAL. IV ONE (14:30)
[2020-04-19] MEDS ORDERED: VANCOMYCIN 1.75 GM in IV NORMAL SALINE 500ML 500 ML IV ONE (14:45)
[2020-04-19 21:11] VITALS: BP 114/57
== END 2020-04-20 00:59 | disposition short-term general hospital (02) ==
LOC: ER 12:08
DX: U07.1 COVID-19 (principal); J96.00 Acute respiratory failure, unspecified whether with hypoxia or hypercapnia; R41.82 Altered mental status, unspecified; F03.90 Unspecified dementia, unspecified severity, without behavioral disturbance, psychotic disturbance, mood disturbance, and anxiety; I10 Essential (primary) hypertension; E03.9 Hypothyroidism, unspecified; Z88.0 Allergy status to penicillin; Z86.2 Personal history of diseases of the blood and blood-forming organs and certain disorders involving the immune mechanism
CPT/HCPCS: 36415; 70450; 71045; 80053; 81001; 82553; 83605; 83735; 83880; 84443; 84484; 85025; 85610; 85730; 87040; 87077; 87086; 87186; 93005; 96361; 96365; 96366; 96368; 96375; 99285; J1100; J1956; J3370; J7030; J7040

== ENCOUNTER 2020-04-25 20:28 | Emergency (ER) | payer MEDICARE ==
[~2020-04-25] VITALS: Ht 175.3 cm; Wt 66.3 kg
--- NOTE | 2020-04-25 20:40 | PHYS DOC ---
Past History Past Medical History: Dementia, Hypertension, Hypothyroid Additional Past Medical Histor: Parkinson's Past Surgical History: No Surgical History, Other Additional Past Surgical Histo: left hip arthroplasty Smoking: Non-smoker Alcohol Use: None Drug Use: None General Adult HPI: HPI: Patient is a 83-year-old male coming in from nursing facility after a fall this morning. Oncoming nurse noted that he has a large hematoma to his left forehead. Fall was unwitnessed this morning. Patient states he was walking when he fell from standing, denies any significant injury or loss of consciousness. Patient denies any pain. Patient ambulates with assistance. Per EMS report they state that patient is on blood thinner, but per review of patient records provided the only blood thinner medication is 81 mg aspirin. Patient tested positive for Covid 12-11-30. When EMS arrived patient was not known to have any oxygen requirements. He was placed on simple mask by EMS due to oxygen saturations in the mid 80s. Patient was discharged from [facility] yesterday, had an IVC filter placed for lower extremity DVT. Review of Systems: Review of Systems: Negative other than was mentioned in HPI Allergies: Allergies: Allergies Coded Allergies Type Severity Reaction Last Updated Verified Penicillins Allergy Unknown 03/19/20 Yes Physical Exam: PE: Constitutional: Thin, no acute distress HENT: Hematoma to left forehead, no signs of bleeding. Eyes: PERRLA, EOMI, conjunctiva normal, no discharge. [] Neck: Normal range of motion, no tenderness, supple, no stridor. [] Cardiovascular:Heart rate regular rhythm, no murmur [] Lungs & Thorax: Bilateral breath sounds clear to auscultation [] Abdomen: Bowel sounds normal, soft, no tenderness, no masses, no pulsatile masses. [] Skin: Ecchymosis to forehead, about the lateral dorsal hands with severe ecchymosis, no open wounds Back: No tenderness, no CVA tenderness. [] Extremities: No tenderness, no cyanosis, no clubbing, ROM intact, no edema. [] No tenderness to palpation of extremities, thorax, hips, no deformity in hands, full range of motion Neurologicted answers to questions appropriately, alert Psychologic: Affect normal, judgement normal, mood normal. [] EKG: EKG: Atrial fibrillation, heart rate 74 bpm, no ST elevation or depression, leftward axis [] no change when compared to 04-19-20 Radiology/Procedures: Radiology/Procedures: ADDENDUM #1 Addendum: Findings should read as follows: Fracture to the cervical spine is NOT identified. Electronically signed by: Amanda Guzman MD (04/25/2020 10:39 PM) [facility] ORIGINAL REPORT Exam: CT head and cervical spine without contrast INDICATION: Fall, left-sided upper forehead bruising TECHNIQUE: Sequential axial images through the head and cervical spine were obtained without the administration of IV contrast. Comparisons: 04/19/2020 FINDINGS: Head: No focal parenchymal lesion or hemorrhage is identified. There is no midline shift or sulcal effacement. Patchy evidence in the periventricular white matter stable when compared to the prior. Lacunar infarcts at the basal ganglia bilaterally, stable from prior. No acute vascular territory infarction is identified. Pena-white distinction is preserved. The ventricular system is within normal limits without compression hydrocephalus. The basal cisterns are well maintained. Extra cranial soft tissue scalp contusion/hematoma overlying the left frontal region. The visualized portions of the paranasal sinuses and mastoid air cells are well-pneumatized. No acute fractures. Cervical spine: Straightening of the cervical spine which may positional. Vertebral body heights are well-maintained. Fracture to the cervical spine is identified. Multilevel spondylotic change in cervical spine with degenerative disc disease greatest at C4-C5, C5-C6 and C6-C7. Mild bilateral facet arthropathy is also noted. Visualized paraspinal soft tissues are unremarkable. IMPRESSION: 1. Extra cranial soft tissue scalp contusion/hematoma overlying the left frontal region. No underlying osseous or intracranial abnormality. 2. Negative CT C-spine for acute traumatic injury. [] Exam: Pelvis 1 view INDICATION: Fall, pain and pelvis TECHNIQUE: Frontal view of the pelvis Comparisons: 03/03/2020 FINDINGS: Diffuse osteopenia. Postoperative changes of left hip fixation. Healing changes at the left hip fracture is seen. Joint spaces are well-maintained. Soft tissues are unremarkable. IMPRESSION: No acute osseous abnormality identified. If the patient is acutely unable to bear weight consider cross-sectional imaging for further evaluation. Heart Score: Risk Factors: Risk Factors: DM, Current or recent (<one month) smoker, HTN, HLP, family history of CAD, obesity. Risk Scores: Score 0 - 3: 2.5% MACE over next 6 weeks - Discharge Home Score 4 - 6: 20.3% MACE over next 6 weeks - Admit for Clinical Observation Score 7 - 10: 72.7% MACE over next 6 weeks - Early Invasive Strategies Course & Med Decision Making: Course & Med Decision Making Pertinent Labs and Imaging studies reviewed. (See chart for details) Troponin 0.3, per chart review patient has had a baseline troponin of 0.2-0.3, denies any chest pain or pressure Labs baseline. Elevated dimer but no clinical signs of PE and patient has a IVC filter placed. Originally ordered due to concern for hypoxia, patient's oxygen saturations improved when his fingers were warm and was not requiring any oxygen supplementation and maintaining oxygen saturations of around 98%. Patient has known DVT. [] Dragon Disclaimer: Dragon Disclaimer: This electronic medical record was generated, in whole or in part, using a voice recognition dictation system. Departure Departure: Impression: Primary Impression: Fall Additional Impression: Traumatic hematoma of forehead Disposition: 03 DC/TRF TO SNF Condition: STABLE Referrals: DEX MOSCOSO DO (PCP) Patient Instructions: Scalp Hematoma PRANAV OWENS MD Apr 25, 2020 20:40
[2020-04-25 21:16] LABS: BASO % 1 % (0-3); EOS % 1 % (0-3); HEMATOCRIT 28.3 % (39.0-53.0); HEMOGLOBIN 9.4 g/dL (13.0-17.5); LYMPH # 1.4 x10^3/uL (1.0-4.8); LYMPH % 36 % (24-48); MEAN CORPUSCULAR HEMOGLOBIN 33 pg (25-35); MEAN CORPUSCULAR HGB CONC 33 g/dL (31-37); MEAN CORPUSCULAR VOLUME 100 fL (79-100); MONO # 0.4 x10^3/uL (0.0-1.1); MONO % 11 % (0-9); NEUT % 53 % (31-73); PLATELET COUNT 261 x10^3/uL (140-400); RED BLOOD COUNT 2.82 x10^6/uL (4.30-5.70); RED CELL DISTRIBUTION WIDTH 14.4 % (11.5-14.5); WHITE BLOOD COUNT 3.9 x10^3/uL (4.0-11.0)
[2020-04-25 21:24] LABS: CALCIUM 8.4 mg/dL (8.5-10.1); CREATININE 1.3 mg/dL (0.7-1.3); GFR 52.3; POTASSIUM 4.6 mmol/L (3.5-5.1)
--- NOTE | 2020-04-25 21:34 | EKG ---
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
[2020-04-25 21:37] LABS: TOTAL BILIRUBIN 0.2 mg/dL (0.2-1.0); TOTAL PROTEIN 5.9 g/dL (6.4-8.2)
--- NOTE | 2020-04-25 21:37 | RAD ---
ADDENDUM #1 Addendum: Findings should read as follows: Fracture to the cervical spine is NOT identified. Electronically signed by: Amanda Guzman MD (04/25/2020 10:39 PM) [facility] ORIGINAL REPORT Exam: CT head and cervical spine without contrast INDICATION: Fall, left-sided upper forehead bruising TECHNIQUE: Sequential axial images through the head and cervical spine were obtained without the admi nistration of IV contrast. Comparisons: 04/19/2020 FINDINGS: Head: No focal parenchymal lesion or hemorrhage is identified. There is no midline shift or sulcal effaceme nt. Patchy evidence in the periventricular white matter stable when compared to the prior. Lacunar infarc ts at the basal ganglia bilaterally, stable from prior. No acute vascular territory infarction is db ntified. Pena-white distinction is preserved. The ventricular system is within normal limits without compression hydrocephalus. The basal cisterns are well maintained. Extra cranial soft tissue scalp contusion/hematoma overlying the left frontal region. The visualized portions of the paranasal sinuses and mastoid air cells are well-pneumatized. No acute fractures. Cervical spine: Straightening of the cervical spine which may positional. Vertebral body heights are well-maintained. Fracture to the cervical spine is identified. Multilevel spondylotic change in cervical spine with degenerative disc disease greatest at C4-C5, C5- C6 and C6-C7. Mild bilateral facet arthropathy is also noted. Visualized paraspinal soft tissues are unremarkable. IMPRESSION: 1. Extra cranial soft tissue scalp contusion/hematoma overlying the left frontal region. No underlyi ng osseous or intracranial abnormality. 2. Negative CT C-spine for acute traumatic injury. Exposure: One or more of the following in the visualized dose reduction techniques were utilized for this examination: 1. Automated exposure control 2. Adjustment of the MA and/or KV according to patient size Use of iterative of reconstructive technique Electronically signed by: Amanda Guzman MD (04/25/2020 9:34 PM) [facility]
--- NOTE | 2020-04-25 21:39 | RAD ---
Exam: Pelvis 1 view INDICATION: Fall, pain and pelvis TECHNIQUE: Frontal view of the pelvis Comparisons: 03/03/2020 FINDINGS: Diffuse osteopenia. Postoperative changes of left hip fixation. Healing changes at the left hip fract ure is seen. Joint spaces are well-maintained. Soft tissues are unremarkable. IMPRESSION: No acute osseous abnormality identified. 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 Electronically signed by: Amanda Guzman MD (04/25/2020 9:36 PM) [facility]
[2020-04-25 23:35] VITALS: BP 116/46
== END 2020-04-25 23:35 ==
LOC: ER 20:28
DX: S00.83XA Contusion of other part of head, initial encounter (principal); S60.222A Contusion of left hand, initial encounter; S60.221A Contusion of right hand, initial encounter; U07.1 COVID-19; F03.90 Unspecified dementia, unspecified severity, without behavioral disturbance, psychotic disturbance, mood disturbance, and anxiety; I10 Essential (primary) hypertension; E03.9 Hypothyroidism, unspecified; Z96.642 Presence of left artificial hip joint; Z86.718 Personal history of other venous thrombosis and embolism; Z88.0 Allergy status to penicillin; W18.39XA Other fall on same level, initial encounter; Y93.01 Activity, walking, marching and hiking; Y92.89 Other specified places as the place of occurrence of the external cause; Y99.8 Other external cause status
CPT/HCPCS: 36415; 70450; 72125; 72170; 80053; 83605; 83880; 84484; 85025; 85379; 85610; 93005; 99285

== ENCOUNTER 2020-05-04 18:05 | Observation (INO) | payer MEDICARE ==
[~2020-05-04] VITALS: Ht 182.9 cm; Wt 48.6 kg
[2020-05-04] MEDS ORDERED: 0.9 % SODIUM CHLORIDE 10 ML DISP.SYRIN. IV PRN (18:30)
--- NOTE | 2020-05-04 18:31 | EKG ---
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
[2020-05-04] MEDS ORDERED: IV NORMAL SALINE 50ML 50 ML ONE (18:35)
[2020-05-04] MEDS ORDERED: cefTRIAXone SODIUM 1 GM VIAL ONE (18:35)
[2020-05-04 18:36] LABS: BGAS PH 7.5 (7.35-7.46)
--- NOTE | 2020-05-04 18:50 | PHYS DOC ---
Past History Past Medical History: Anemia, Dementia, High Cholesterol, Hypertension, Hypothyroid Additional Past Medical Histor: Parkinson's, dysphagia Past Surgical History: No Surgical History, Other Additional Past Surgical Histo: left hip arthroplasty Smoking: Non-smoker Alcohol Use: None Drug Use: None Adult General Chief Complaint Chief Complaint: ALTERED MENTAL STATUS HPI HPI Patient is a 84-year-old male who presents to the emergency room with reported new onset altered mental status. Upon arrival to the emergency room patient is unable to provide any history. According to EMS they went to get him for dinner and patient was unresponsive. He initially had a pulse ox of 61% and they placed him on nonrebreather. They state that they initially had a pulse ox of 79 on a nonrebreather and they added nasal cannula. He has not talked to them or followed any kind of commands. Review of Systems Review of Systems Complete ROS is negative unless otherwise documented in HPI Current Medications Current Medications Current Medications Medications (Trade) Dose Ordered Sig/Raimundo Start Time Stop Time Status Last Admin Dose Admin Ceftriaxone Sodium 1 gm/ Sodium Chloride 50 ml @ 100 mls/hr 1X ONCE 05/04/20 18:30 05/04/20 18:59 Ceftriaxone Sodium (Rocephin) 1 gm STK-MED ONCE 05/04/20 18:35 05/04/20 18:36 DC Sodium Chloride 50 ml @ As Directed STK-MED ONCE 05/04/20 18:35 05/04/20 18:35 DC Sodium Chloride (Normal Saline Flush) 10 ml QSHIFT PRN 05/04/20 18:30 Allergies Allergies Allergies Coded Allergies Type Severity Reaction Last Updated Verified Penicillins Allergy Unknown 03/19/20 Yes Physical Exam Physical Exam General: Lethargic, cachectic HEENT: Bruising to the forehead and multiple stages of healing suggestive of an old injury. EOMI, PERRL, airway patent, dry oral mucosa Neck: Supple, trachea midline Respiratory: CTA bilaterally, normal effort, no wheezing/crackles CV: RRR, no murmur, cap refill <2 GI: Soft, nondistended, nontender, no masses MSK: No obvious deformities Skin: Warm, dry, intact Neuro: Nonverbal, reacts to pain in all 4 extremities, hold all extremities in flexion, localizes pain, GCS 9 Current Patient Data Vital Signs Vital Signs Date Time Temp Pulse Resp B/P (MAP) Pulse Ox O2 Delivery O2 Flow Rate FiO2 05/04/20 18:05 98.9 79 18 126/60 (82) 98 NonRebreather Mask 15.0 Lab Results Laboratory Tests Test 05/04/20 18:24 Blood pH 7.50 (7.35-7.46) H Blood Gas PCO2 38 mmHg (35-46) Blood Gas PO2 342 mmHg (71-100) H Blood Gas HCO3 30 mmol/L (21-28) H Arterial Bld O2 Saturation (Calc) 100 % (92-99) H FiO2 100 % EKG EKG [] Radiology/Procedures Radiology/Procedures [] Heart Score Risk Factors: Risk Factors: DM, Current or recent (<one month) smoker, HTN, HLP, family history of CAD, obesity. Risk Scores: Risk Factors: DM, Current or recent (<one month) smoker, HTN, HLP, family history of CAD, obesity. Course & Med Decision Making Course & Med Decision Making Pertinent Labs and Imaging studies reviewed. (See chart for details) Patient is an 84-year-old male who presents to the emergency room with altered mental status for unknown reasons. Upon arrival to the emergency room patient is on a nonrebreather with pulse ox of 100%. It is possible that his altered m ental status was due to hypoxia. 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 Patient is not on blood thinners. I have discussed this with Dr. eNwman who states that he was not a candidate for blood thinners. CT angio will not be ordered to rule out a pulmonary embolism at this time as patient is not a blood thinner candidate and his creatinine is eleva chely.. A sepsis work-up was ordered as well as a CT head to evaluate for an intracranial bleed. ABG was done to evaluate for CO2 retention. Patient was positive for Covid 14 days ago. Patient is dehydrated and will be given fluids. He will be admitted for altered mental status. His mental status and oxygenation greatly improved while in the emergency room. Dragon Disclaimer Dragon Disclaimer This electronic medical record was generated, in whole or in part, using a voice recognition dictation system. Departure Departure: Impression: Primary Impression: Altered mental status Additional Impression: Dehydration Disposition: ADMITTED INPT THIS HOSP Condition: IMPROVED Referrals: DEX MOSCOSO DO (PCP) Problem Qualifiers HENNA BILL MD May 04, 2020 18:50
[2020-05-04 18:58] LABS: BASO % 1 % (0-3); EOS % 1 % (0-3); HEMATOCRIT 25.7 % (39.0-53.0); HEMOGLOBIN 8.4 g/dL (13.0-17.5); LYMPH # 1.4 x10^3/uL (1.0-4.8); LYMPH % 23 % (24-48); MEAN CORPUSCULAR HEMOGLOBIN 33 pg (25-35); MEAN CORPUSCULAR HGB CONC 33 g/dL (31-37); MEAN CORPUSCULAR VOLUME 100 fL (79-100); MONO # 0.6 x10^3/uL (0.0-1.1); MONO % 10 % (0-9); NEUT # 3.9 x10^3uL (1.8-7.7); NEUT % 65 % (31-73); PLATELET COUNT 389 x10^3/uL (140-400); RED BLOOD COUNT 2.57 x10^6/uL (4.30-5.70); RED CELL DISTRIBUTION WIDTH 14.1 % (11.5-14.5); WHITE BLOOD COUNT 5.9 x10^3/uL (4.0-11.0)
--- NOTE | 2020-05-04 18:59 | RAD ---
AP chest. HISTORY: Hypoxia AP view was taken of the chest. There are mild left basilar infiltrates. Patient rotated to the right . Heart is normal in size. The aorta is mildly tortuous. There is no effusion. IMPRESSION: 1. Peribronchial thickening and mild basilar infiltrates on the left. Electronically signed by: Sebastian Pereyra MD (05/04/2020 6:57 PM) [facility]
--- NOTE | 2020-05-04 19:05 | RAD ---
STUDY: CT head without contrast INDICATION: Altered mental status. Weakness. COMPARISON: 04/25/2020 TECHNIQUE: Axial CT imaging through the head without the use of intravenous contrast. Sagittal and co jean-paul reformats were obtained. One or more of the following individualized dose reduction techniques were utilized for this examinat ion: 1. Automated exposure control 2. Adjustment of the mA and/or kV according to patient size 3. Use of iterative reconstruction technique. FINDINGS: The study is limited due to patient obliquity in the gantry. No acute intracranial hemorrhage is identified. No localized mass effect or midline shift. No change in the degree of ventricular dilatation or periventricular parenchymal hypoattenuation. Senescent min eralization within the globus pallidus palatine. Intracranial atherosclerotic calcifications. White m atter findings favored most likely on account of chronic microvascular ischemic change. Parenchymal v olume loss. Redemonstrated left frontal scalp contusion. No depressed calvarial fracture. The cervical spine incl uded in the [id number] is incompletely evaluated. IMPRESSION: No acute intracranial abnormality by CT. No significant change from the 04/25/2020 comparison. Electronically signed by: TOM GUTIERREZ MD (05/04/2020 7:02 PM) [facility]
[2020-05-04 19:17] LABS: CALCIUM 8.7 mg/dL (8.5-10.1); CREATININE 1.7 mg/dL (0.7-1.3); GFR 38.4; POTASSIUM 4.4 mmol/L (3.5-5.1)
[2020-05-04 19:21] LABS: ALBUMIN 2.9 g/dL (3.4-5.0); ALBUMIN/GLOBULIN RATIO 0.8 (1.0-1.7); TOTAL BILIRUBIN 0.4 mg/dL (0.2-1.0); TOTAL PROTEIN 6.4 g/dL (6.4-8.2)
[2020-05-04 19:30] LABS: BACTERIA,URINE 0 /HPF (0-FEW); BILIRUBIN,URINE NEG (NEG); CLARITY,URINE CLEAR; COLOR,URINE AMBER; GLUCOSE,URINE NEG (NEG); NITRITE,URINE NEG (NEG); RBC,URINE RARE /HPF (0-2); WBC,URINE OCC /HPF (0-4)
[2020-05-04 19:52] LABS: INFLUENZA A PATIENT NEGATIVE (NEGATIVE); INFLUENZA B PATIENT NEGATIVE (NEGATIVE)
[2020-05-04] MEDS ORDERED: IV NORMAL SALINE 1,000ML 1,000 ML IV ONE (20:00)
[2020-05-04 21:30] VITALS: BP 105/82
[2020-05-04] MEDS ORDERED: ONDA4TAB7 PO (23:41)
[2020-05-04] MEDS ORDERED: ASPI325T8 PO (23:41)
[2020-05-04] MEDS ORDERED: ATOR40TA59 PO (23:41)
[2020-05-04] MEDS ORDERED: ZINC220T3 PO (23:41)
[2020-05-04] MEDS ORDERED: CHOL500021 PO (23:41)
[2020-05-04] MEDS ORDERED: ASCO500C9 PO (23:41)
[2020-05-04] MEDS ORDERED: MAGN24003 PO (23:41)
--- NOTE | 2020-05-05 00:55 | NUR ---
The patient, RICKY CRUZ, 84 y/o, M admitted by YAMILE VAUGHN MD, was given written information regarding hospital policies, unit procedures and contact persons. Valuables were checked and noted. PT sleeping, easily aroused to name. Unable to answer questions. Most information obtained from chart. PT with noted abrasion, bump and ecchymosis to LT lateral scalp. Skin tear noted to LT outer elbow.
[2020-05-05 02:45] VITALS: BP 99/64
[2020-05-05] MEDS: IV NORMAL SALINE 1,000ML 1,000 ML IV SCH ×2 (05:22→09:35)
[2020-05-05 06:33] VITALS: BP 104/57
--- NOTE | 2020-05-05 10:48 | HP ---
ADMIT DATE: 05/04/2020 ATTENDING PHYSICIAN: Dr. Goins. CHIEF COMPLAINT: Altered mentation. HISTORY OF PRESENT ILLNESS: The patient is an 84-year-old gentleman, resident of a local alf. He was admitted to the ED with hypoxemia. He was unable to provide any history. He had altered mentation and not himself. Unfortunately, his baseline is demented. He was given supplemental oxygen. Chest x-ray demonstrated no infiltrate. He was admitted here, he had a positive COVID-19 swab earlier this week. PAST MEDICAL HISTORY: Significant for Parkinson's disease, dementia, hyperlipidemia, hypertension and hypothyroidism, on replacement. MEDICATIONS: Reviewed. At the alf, he was scheduled to take Aricept, ferrous sulfate, Lipitor, lisinopril, hydrochlorothiazide, aspirin, Seroquel, Sinemet 3 times a day, zinc, docusate, magnesium, ondansetron, metformin, B12, ascorbic acid and vitamin D3. ALLERGIES: HE HAS ALLERGIES TO PENICILLIN, WHICH CAUSES A RASH. SOCIAL HISTORY: Nonsmoker, nondrinker. FAMILY HISTORY: Unobtainable due to the patient's mentation. REVIEW OF SYSTEMS: Unobtainable. PHYSICAL EXAMINATION: GENERAL: When I saw him, this is a pleasant elderly gentleman in no acute distress. He is pleasantly confused. INITIAL VITAL SIGNS: Showed a blood pressure of 104/57, pulse is 80 and regular, temperature 98.4 degrees Fahrenheit, oxygen saturation 100% on room air. HEENT: Head is without trauma. Pupils are reactive. Orbits are bit sunken. NECK: Supple, no bruits. LUNGS: Otherwise clear. CARDIOVASCULAR: Showed regular heart tones. No gallops. ABDOMEN: Soft, no guarding. EXTREMITIES: Without edema. NEUROLOGIC: Focally intact. Speech was fluent. He had no focal deficits. PERTINENT LABORATORY AND X-RAY STUDIES: The obligatory CT of the head showed no acute intracranial process. There are no masses or midline shift. There are microvascular changes consistent with ischemia and parenchymal volume loss consistent with age. LABORATORY DATA: Hemoglobin is 8.4 g/dL with a white count of 5900. Chemistry panel unremarkable. Creatinine is 1.7 mg percent. Lactate was adequate. Transaminases were normal. ASSESSMENT: 1. An 84-year-old gentleman with altered mentation. 2. Hypoxemia, improved with supplemental oxygen. 3. Recent COVID-19 infection without evidence of pulmonary symptoms. 4. Profound dementia. 5. Underlying Parkinson's disease. 6. Generalized debilitation. 7. Type 2 diabetes. PLAN: 1. Observation status. 2. Supplemental oxygen to be weaned down. 3. Diet as tolerated. 4. Continue some home meds. We will hold his blood pressure meds for now given his marginal BP. DONAL GOINS MD DR: TEMI/benitez JOB#: [id number] / [id number]
--- NOTE | 2020-05-05 11:12 | DS ---
DATE OF DISCHARGE: 05/05/2020 ATTENDING PHYSICIAN: Dr. Donal Goins FINAL DISCHARGE DIAGNOSES: 1. Altered mentation, resolved. 2. Hypoxemia, resolved. The patient's saturations were 100% on room air prior to discharge. 3. Underlying Parkinson's disease with dementia, profound. 4. Essential hypertension, currently normotensive. 5. Hypothyroidism. 6. Anemia of chronic disease. 7. Degenerative arthritis. HISTORY OF PRESENT ILLNESS: The patient is an 84-year-old gentleman with profound dementia and Parkinson's disease. He was admitted from the Emergency Department from the [facility] with altered mentation, hypoxemia. He could not provide any history. Saturations were marginal. He was given supplemental oxygen. PHYSICAL EXAMINATION: Please see the dictated note. PERTINENT LABORATORY AND X-RAY STUDIES: His admission hemoglobin was 8.4 g/dL with a white count of 5900. Electrolytes within normal range. Creatinine 1.7 mg %. Transaminases normal. Nonfasting blood sugar 129 mg/dL. The obligatory CT of the head demonstrated no acute changes, volume loss and atrophy consistent with age, no acute stroke was identified. Chest x-ray showed COPD changes, no acute infiltrates, no decompensation. COURSE IN THE HOSPITAL: The patient was admitted. He came around. We continue some of his home meds. Blood pressure is marginal. We held his lisinopril, hydrochlorothiazide. He did well. By the second hospital day, he was back to his baseline. He did not require any supplemental oxygen. Oxygen saturation close to 100% on room air. Vital signs were quite stable. Blood pressure was 104/57, pulse was 80 and regular. He was afebrile. Therefore, he wanted to go home. Arrangements were made for transfer back to [facility]. We took the liberty of simplifying his meds a bit. He will continue his ascorbic acid, aspirin, Lipitor, Sinemet, B12, docusate, Aricept, ferrous sulfate, magnesium hydroxide, metformin, ondansetron, Seroquel, and zinc doses unchanged. For now because of the marginal blood pressure, we held his lisinopril, hydrochlorothiazide. His prognosis is fair. He will follow a regular diet. He was discharged then from our hospital in stable condition with explicit instructions and followup care at the local [facility]. DONAL GOINS MD DR: TEMI/benitez JOB#: [id number] / [id number]
[2020-05-05 11:36] VITALS: BP 99/52
--- NOTE | 2020-05-05 14:31 | NUR ---
DISCHARGE NOTE-REPORT CALLED TO [facility]. SPOKE WITH NURSE, RELATED DETAILS OF STAY. ALL POSSESSIONS ARE PACKED. IVF ET TELE DISCONTINUED. PIV X2 REMOVED. PT IS DRESSED ET AWAITING ARRIVAL OF FACILITY TRANSPORT VAN FOR TRANSPORT BACK TO FACILITY.
== END 2020-05-05 15:01 ==
LOC: ER 18:05 → INTOOBSV 20:46 → 1 SOUTH 20:46
PROVIDERS: ADMIT Internal Medicine; ATTEND Internal Medicine
DX: R41.82 Altered mental status, unspecified (principal); R09.02 Hypoxemia; F02.80 Dementia in other diseases classified elsewhere, unspecified severity, without behavioral disturbance, psychotic disturbance, mood disturbance, and anxiety; G20 Parkinson's disease; E86.0 Dehydration; I10 Essential (primary) hypertension; R53.81 Other malaise; E11.9 Type 2 diabetes mellitus without complications; E78.5 Hyperlipidemia, unspecified; E03.9 Hypothyroidism, unspecified; D63.8 Anemia in other chronic diseases classified elsewhere; E78.00 Pure hypercholesterolemia, unspecified; M19.90 Unspecified osteoarthritis, unspecified site; Z86.19 Personal history of other infectious and parasitic diseases; Z96.642 Presence of left artificial hip joint
CPT/HCPCS: 36415; 36600; 70450; 71045; 80053; 81001; 82803; 83605; 85025; 87040; 87086; 87804; 93005; 96361; 96365; 99285; G0378; J0696; J7030; P9612; G0379

== ENCOUNTER 2020-06-08 10:28 | Emergency (ER) | payer MEDICARE ==
[~2020-06-08] VITALS: Ht 182.9 cm; Wt 48.0 kg
[~2020-06-08 10:28] MED LIST changes: +ASCO500C9 PO; +ATOR40TA59 PO; +CHOL500021 PO; +MAGN24003 PO; +ONDA4TAB7 PO; +ZINC220T3 PO
[2020-06-08] MEDS ORDERED: IV NORMAL SALINE 1,000ML 1,000 ML IV SCH (11:00)
[2020-06-08] MEDS ORDERED: VANCOMYCIN PER PHARMACY MC PRN (11:00)
[2020-06-08] MEDS ORDERED: AZTREONAM 2 GM in IV NORMAL SALINE 100ML 100 ML IV ONE (11:00)
[2020-06-08 11:19] LABS: BASO % 0 % (0-3); EOS % 0 % (0-3); HEMATOCRIT 22.8 % (39.0-53.0); HEMOGLOBIN 7.6 g/dL (13.0-17.5); LYMPH # 0.8 x10^3/uL (1.0-4.8); LYMPH % 9 % (24-48); MEAN CORPUSCULAR HEMOGLOBIN 33 pg (25-35); MEAN CORPUSCULAR HGB CONC 33 g/dL (31-37); MEAN CORPUSCULAR VOLUME 98 fL (79-100); MONO # 0.6 x10^3/uL (0.0-1.1); MONO % 7 % (0-9); NEUT # 7.1 x10^3uL (1.8-7.7); NEUT % 83 % (31-73); PLATELET COUNT 321 x10^3/uL (140-400); RED BLOOD COUNT 2.33 x10^6/uL (4.30-5.70); RED CELL DISTRIBUTION WIDTH 14.8 % (11.5-14.5); WHITE BLOOD COUNT 8.5 x10^3/uL (4.0-11.0)
[2020-06-08 11:28] LABS: BGAS PH 7.48 (7.35-7.46)
[2020-06-08] MEDS ORDERED: VANCOMYCIN 1.25 GM in IV NORMAL SALINE 250ML 250 ML IV ONE (11:30)
[2020-06-08 11:40] LABS: CALCIUM 8.3 mg/dL (8.5-10.1); CREATININE 1.7 mg/dL (0.7-1.3); GFR 38.4; POTASSIUM 4.6 mmol/L (3.5-5.1)
--- NOTE | 2020-06-08 11:47 | RAD ---
Exam performed: One view chest. Indication: Reason: dyspnea, hypoxia / Spl. Instructions: / History: Date of Service: 06/08/2020 11:10 AM Comparison: One view chest from 05/04/2020. Single AP upright portable view chest findings: Study somewhat limited due to mild rotation. Cardiomediastinal silhouette is within limits of normal. Ectatic tortuous aorta is seen perhaps relat ed to rotation. Both lungs are hyperinflated. No acute infiltrates, effusion or pneumothorax is detec chely. Mild haziness in the right lung base could be related to overlying soft tissues or developing in filtrates The bony structures are normal. Impression: Emphysematous lungs. Haziness right lung base could be related to overlying soft tissues or developing infiltrates. Follow -up 2 views of the chest may be obtained to ensure interval stability. Electronically signed by: Gretta Heart MD (06/08/2020 11:44 AM) [facility]
[2020-06-08 11:56] LABS: ALBUMIN 2.4 g/dL (3.4-5.0); ALBUMIN/GLOBULIN RATIO 0.7 (1.0-1.7); TOTAL BILIRUBIN 0.5 mg/dL (0.2-1.0); TOTAL PROTEIN 5.8 g/dL (6.4-8.2)
[2020-06-08 12:05] LABS: BILIRUBIN,URINE NEG (NEG); CLARITY,URINE HAZY; COLOR,URINE YELLOW; GLUCOSE,URINE NEG (NEG)
[2020-06-08 12:08] LABS: NITRITE,URINE NEG (NEG)
[2020-06-08 12:09] LABS: BACTERIA,URINE MANY /HPF (0-FEW); SQUAMOUS EPITHELIAL CELL,UR OCC /LPF; WBC,URINE TNTC /HPF (0-4)
[2020-06-08 12:12] LABS: INFLUENZA A PATIENT NEGATIVE (NEGATIVE); INFLUENZA B PATIENT NEGATIVE (NEGATIVE)
[2020-06-08] MEDS ORDERED: BUMETANIDE 1 MG/4 ML VIAL. IVP ONE (12:30)
--- NOTE | 2020-06-08 12:30 | PHYS DOC ---
Past History Past Medical History: Anemia, Dementia, Diabetes, High Cholesterol, Hypertension, Hypothyroid Additional Past Medical Histor: Parkinson's, dysphagia, COVID-19 (04/19/20) Past Medical History Limited secondary to altered mental status/dementia Past Surgical History: Other Additional Past Surgical Histo: left hip arthroplasty Past Surgical History Limited secondary to altered mental status/dementia Smoking: Non-smoker Alcohol Use: None Drug Use: None Social History Limited secondary to altered mental status/dementia General Adult EDM: Chief Complaint: ALTERED MENTAL STATUS HPI: HPI: 84-year-old male with past medical history of dementia presents with report of decreased mentation and weakness. Patient with limited communication and mentation at baseline per EMS and spouse. Nursing reports patient's symptoms began on Sunday and have progressed. Patient also with some increased shortness of breath. EMS concerned as patient's initial O2 sat upon their arrival was down to 88% on room air. EMS reports placing patient on supplemental O2 via nasal cannula with interval improvement up to 95% on 2 L. EMS also reports noting large healing contusions to left forehead. Report [facility] reported patient with frequent falls. [facility] documentation lists patient as a DO NOT RESUSCITATE/DO NOT INTUBATE which was confirmed by patient's spouse. History of present illness limited secondary to patient's altered mental status/dementia Review of Systems: Review of Systems: Review of systems limited secondary to altered mental status/dementia Current Medications: Current Meds: Current Medications Medications (Trade) Dose Ordered Sig/Raimundo Start Time Stop Time Status Last Admin Dose Admin Aztreonam 2 gm/ Sodium Chloride 100 ml @ 200 mls/hr 1X ONCE 06/08/20 11:00 06/08/20 11:29 DC 06/08/20 11:34 200 MLS/HR Bumetanide (Bumex) 0.5 mg 1X ONCE 06/08/20 12:30 06/08/20 12:31 UNV Sodium Chloride 1,000 ml @ 1,000 mls/hr Q1H 06/08/20 11:00 06/08/20 11:59 DC 06/08/20 11:23 1,000 MLS/HR Vancomycin HCl (Vanco Per Pharmacy) 1 each PRN DAILY PRN 06/08/20 11:00 Vancomycin HCl 1.25 gm/Sodium Chloride 250 ml @ 167 mls/hr 1X ONCE 06/08/20 11:30 06/08/20 12:59 06/08/20 11:34 167 MLS/HR Allergies: Allergies: Allergies Coded Allergies Type Severity Reaction Last Updated Verified Penicillins Allergy Unknown 03/19/20 Yes Physical Exam: PE: Constitutional: Elderly cachectic male, ill-appearing HENT: Normocephalic, left upper forehead healing ecchymosis Eyes: PERRL, conjunctiva normal, no discharge Neck: Normal range of motion, no midline tenderness, supple Lungs & Thorax: Tachypnea, equal chest rise and fall, coarse breath sounds bilaterally Abdomen: Soft, no tenderness, no guarding Skin: Warm, dry, no erythema, no rash Extremities: No tenderness, ROM intact, no edema Neurologic: GCS 11 (eye 4, verbal 2, motor 5), obtunded Psychologic: Judgment abnormal, limited Current Patient Data: Labs: Laboratory Tests Test 06/08/20 10:51 06/08/20 11:10 06/08/20 11:24 06/08/20 11:26 White Blood Count 8.5 x10^3/uL (4.0-11.0) Red Blood Count 2.33 x10^6/uL (4.30-5.70) L Hemoglobin 7.6 g/dL (13.0-17.5) L Hematocrit 22.8 % (39.0-53.0) L Mean Corpuscular Volume 98 fL (79-100) Mean Corpuscular Hemoglobin 33 pg (25-35) Mean Corpuscular Hemoglobin Concent 33 g/dL (31-37) Red Cell Distribution Width 14.8 % (11.5-14.5) H Platelet Count 321 x10^3/uL (140-400) Neutrophils (%) (Auto) 83 % (31-73) H Lymphocytes (%) (Auto) 9 % (24-48) L Monocytes (%) (Auto) 7 % (0-9) Eosinophils (%) (Auto) 0 % (0-3) Basophils (%) (Auto) 0 % (0-3) Neutrophils # (Auto) 7.1 x10^3uL (1.8-7.7) Lymphocytes # (Auto) 0.8 x10^3/uL (1.0-4.8) L Monocytes # (Auto) 0.6 x10^3/uL (0.0-1.1) Eosinophils # (Auto) 0.0 x10^3/uL (0.0-0.7) Basophils # (Auto) 0.0 x10^3/uL (0.0-0.2) Prothrombin Time 11.7 SEC (9.4-11.4) H Prothrombin Time INR 1.1 (0.9-1.1) Activated Partial Thromboplast Time 30 SEC (23-33) Sodium Level 141 mmol/L (136-145) Potassium Level 4.6 mmol/L (3.5-5.1) Chloride Level 105 mmol/L (98-107) Carbon Dioxide Level 27 mmol/L (21-32) Anion Gap 9 (6-14) Blood Urea Nitrogen 53 mg/dL (8-26) H Creatinine 1.7 mg/dL (0.7-1.3) H Estimated GFR (Cockcroft-Gault) 38.4 BUN/Creatinine Ratio 31 (6-20) H Glucose Level 91 mg/dL (70-99) Lactic Acid Level 1.2 mmol/L (0.4-2.0) Calcium Level 8.3 mg/dL (8.5-10.1) L Total Bilirubin 0.5 mg/dL (0.2-1.0) Aspartate Amino Transferase (AST) 23 U/L (15-37) Alanine Aminotransferase (ALT) 18 U/L (16-63) Alkaline Phosphatase 111 U/L (46-116) Ammonia < 10 mcmol/L (11-34) L Creatine Kinase 103 U/L (39-308) Creatine Kinase MB (Mass) 1.3 ng/mL (0.0-3.6) Creatine Kinase MB Relative Index 1.3 % (0-4) Troponin I Quantitative 0.297 ng/mL (0-0.055) H WW-Bvj-H-Type Natriuretic Peptide 32197 pg/mL (0-449) H Total Protein 5.8 g/dL (6.4-8.2) L Albumin 2.4 g/dL (3.4-5.0) L Albumin/Globulin Ratio 0.7 (1.0-1.7) L Blood pH 7.48 (7.35-7.46) H Blood Gas PCO2 33 mmHg (35-46) L Blood Gas PO2 82 mmHg (71-100) Blood Gas HCO3 25 mmol/L (21-28) Arterial Bld O2 Saturation (Calc) 97 % (92-99) FiO2 32 % Influenza Type A (Rapid) Negative (NEGATIVE) Influenza Type B (Rapid) Negative (NEGATIVE) Urine Collection Type U cath Urine Color Yellow Urine Clarity Hazy Urine pH 6.0 Urine Specific [place] 1.020 Urine Protein 30 mg/dl (NEG-TRACE) Urine Glucose (UA) Neg mg/dL (NEG) Urine Ketones (Stick) Trace mg/dL (NEG) Urine Blood Small (NEG) Urine Nitrite Neg (NEG) Urine Bilirubin Neg (NEG) Urine Urobilinogen Dipstick 1.0 mg/dL (0.2 mg/dL) Urine Leukocyte Esterase Large (NEG) Urine RBC 3-5 /HPF (0-2) Urine WBC Tntc /HPF (0-4) Urine Squamous Epithelial Cells Occ /LPF Urine Bacteria Many /HPF (0-FEW) Vital Signs: Vital Signs Date Time Temp Pulse Resp B/P (MAP) Pulse Ox O2 Delivery O2 Flow Rate FiO2 06/08/20 11:55 86 18 89/56 (67) 98 Nasal Cannula 3.0 06/08/20 10:36 98.2 EKG: EKG: @1107 NSR at 83bpm, NO ST elevation, occasional PVC, QRS 74ms, QT/QTc 382/455ms Radiology/Procedures: Radiology/Procedures: PROCEDURE: PORTABLE CHEST 1V Exam performed: One view chest. Indication: Reason: dyspnea, hypoxia / Spl. Instructions: / History: Date of Service: 06/08/2020 11:10 AM Comparison: One view chest from 05/04/2020. Single AP upright portable view chest findings: Study somewhat limited due to mild rotation. Cardiomediastinal silhouette is within limits of normal. Ectatic tortuous aorta is seen perhaps related to rotation. Both lungs are hyperinflated. No acute infiltrates, effusion or pneumothorax is detected. Mild haziness in the right lung base could be related to overlying soft tissues or developing infiltrates The bony structures are normal. Impression: Emphysematous lungs. Haziness right lung base could be related to overlying soft tissues or developing infiltrates. Follow-up 2 views of the chest may be obtained to ensure interval stability. Electronically signed by: Gretta Heart MD (06/08/2020 11:44 AM) [facility] Course & Med Decision Making: Course & Med Decision Making Pertinent Labs and Imaging studies reviewed. (See chart for details) Elderly patient from [facility] with history of dementia presents with progressive weakness and increased altered mental status from his baseline. GCS 11. Signs of recent head trauma. Patient hypoxic on room air per EMS which improved with supplemental O2. Patient does have a history of positive COVID-19 test on 04/19/2020. Breath sounds coarse. Tachypnea noted. Hypotension noted. Concern for possible sepsis. IV fluid hydration provided. Empiric antibiotics initiated. Labs obtained and posted to chart. Troponin slightly elevated. BNP greater than 17,000. WBC and lactic acid within normal limits. Mata catheter placed for output monitoring. UA with signs of infection. Bumex provided given elevated Creatinine. CXR with signs of pneumonia. Patient requiring transfer for admission to higher level of care for further evaluation and treatment. Discussed with Dr. Johnson (hospitalist at [facility]) who is in agreement with transfer for admission. Of note: CT imaging not currently available at [facility] secondary to CT maintenance/repair. CT head/cervical spine ordered and patient will receive after EMS transport to [facility] CT then will continue on to [facility] for admission. Dr. Johnson aware and in agreement. ASA therefore currently held. Romulo Disclaimer: Romulo Disclaimer: This electronic medical record was generated, in whole or in part, using a voice recognition dictation system. Departure Departure: Impression: Primary Impression: Altered mental status Qualified Codes: R41.82 - Altered mental status, unspecified Additional Impressions: Scalp contusion Qualified Codes: S00.03XA - Contusion of scalp, initial encounter Elevated troponin Pneumonia Qualified Codes: J18.9 - Pneumonia, unspecified organism Urinary tract infection Qualified Codes: N30.00 - Acute cystitis without hematuria Congestive heart failure Qualified Codes: I50.9 - Heart failure, unspecified History of 2019 novel coronavirus disease (COVID-19) DNR (do not resuscitate) Disposition: 05 DC/TRF OTHER TYPE INSTITUTI ([facility]- Dr. Johnson (hospitalist) accepting) Condition: GUARDED Referrals: DEX MOSCOSO DO (PCP) Critical Care Time Critical care time was 30 minutes which includes time at bedside, spent in d iscussion of patient's care with specialists and/or family members, with interpretation of laboratory and/or radiological studies and is exclusive of procedures. ZENAIDA ESTRADA DO Jun 08, 2020 12:30
--- NOTE | 2020-06-08 13:59 | EKG ---
[address] [address] Test Date: 2020-06-08 Test Time: 11:07:54 Pat Name: RICKY CRUZ Department: Room: Gender: M [employer] Supervisor: SHARAD : [id number] Requested By: ZENAIDA ESTRADA Order Number: [id number] Reading MD: Measurements Intervals [place] Rate: 83 P: MN: QRS: 54 QRSD: 74 T: -59 QT: 382 QTc: 455 Interpretive Statements IRREGULAR RHYTHM, NO P-WAVE FOUND VENTRICULAR PREMATURE COMPLEX(ES) T ABNORMALITY IN ANTEROLATERAL LEADS INFERIOR LEADS ABNORMAL ECG RI6.02 No previous ECG available for comparison
--- NOTE | 2020-06-08 15:14 | RAD ---
CT scan of the head without contrast 06/08/2020 Clinical History: Altered mental status. Technique: Unenhanced, contiguous, 5 mm axial sections were obtained through the head. One or more of the following individualized dose reduction techniques were utilized for this study: 1. Automated exposure control. 2. Adjustment of the mA and/or kV according to patient size. 3. Use of iterative reconstruction technique. Findings: Comparison study is dated 04/25/2020 . There is generalized parenchymal atrophy. Areas of decreased attenuation are seen within the perivent ricular and subcortical white matter of both cerebral hemispheres consistent with areas of small vess el ischemic disease. No acute parenchymal abnormality is seen. No extra-axial fluid collection is not ed. No skull fracture is seen. Impression: No acute intracranial abnormality is seen. CT scan of the cervical spine without contrast 06/08/2020 Clinical history: Neck injury. Technique: Unenhanced, contiguous, 0.625 mm axial sections were obtained through the cervical spine. Axial, coronal and sagittal reconstructed images were obtained. One or more of the following individualized dose reduction techniques were utilized for this study: 1. Automated exposure control. 2. Adjustment of the mA and/or kV according to patient size. 3. Use of iterative reconstruction technique. Findings: Sagittal and coronal reconstructed images demonstrate mild lateral curvature of the cervica l spine, convex to the left. There is straightening of the normal cervical lordosis. Degenerative renetta nges consisting of disc space narrowing, vertebral endplate sclerosis and mild anterior and posterior vertebral body osteophyte formation are seen throughout the cervical disc spaces. Atherosclerotic calcification seen in the region of the carotid bifurcations. Degenerative changes ar e seen involving the uncovertebral and facet joints throughout the cervical disc spaces. No fracture or subluxation of the cervical vertebrae seen. Impression: No fracture or subluxation of the cervical vertebra is identified. Electronically signed by: Rj Schuler MD (06/08/2020 3:12 PM) [id number]
[2020-06-08 15:23] VITALS: BP 98/42
[2020-06-08] MEDS ORDERED: ASPIRIN RECTAL 300 MG SUPP. PR ONE (15:45)
== END 2020-06-08 15:50 | disposition short-term general hospital (02) ==
LOC: ER 10:28
DX: S00.03XA Contusion of scalp, initial encounter (principal); J18.9 Pneumonia, unspecified organism; R41.82 Altered mental status, unspecified; R77.8 Other specified abnormalities of plasma proteins; N30.00 Acute cystitis without hematuria; Z66 Do not resuscitate; I11.0 Hypertensive heart disease with heart failure; I50.9 Heart failure, unspecified; F03.90 Unspecified dementia, unspecified severity, without behavioral disturbance, psychotic disturbance, mood disturbance, and anxiety; E11.9 Type 2 diabetes mellitus without complications; E78.00 Pure hypercholesterolemia, unspecified; Z20.822 Contact with and (suspected) exposure to COVID-19; Z86.2 Personal history of diseases of the blood and blood-forming organs and certain disorders involving the immune mechanism; Z88.0 Allergy status to penicillin; W18.39XA Other fall on same level, initial encounter; Y93.89 Activity, other specified; Y92.89 Other specified places as the place of occurrence of the external cause; Y99.8 Other external cause status
CPT/HCPCS: 36415; 51702; 70450; 71045; 72125; 80053; 81001; 82140; 82553; 82803; 83605; 83880; 84484; 85025; 85610; 85730; 87040; 87086; 87804; 93005; 96365; 96368; 96375; 99291; C9803; J3370; J3490; J7030; J7050; U0003